=== PATIENT | male | born 1955 | race Caucasian/White ===

== ENCOUNTER 2017-08-12 18:50 | Inpatient (IN) | payer OTHER, SELFPAY ==
[~2017-08-12] VITALS: Ht 167.6 cm; Wt 48.2 kg
[~2017-08-12 18:50] MED LIST: ACET325 PO; AMIT10 PO; FLUSAL2505 INH; FLUT1DIS8 INH; GUAI600T33 PO; LEVO750 PO; LEVOFLOXACIN750 MG PO; METO25ER PO; PRED10 PO; Prednisone20 MG PO; TIOT18 IH; Ventolin5 MG/1 ML NEB
[2017-08-12] MEDS ORDERED: Cheratussin AC118 ML PO (19:41)
[2017-08-12 19:42] LABS: Influenza A Negative (NEGATIVE); Influenza B Negative (NEGATIVE)
[2017-08-12 19:55] LABS: BASOPHILS ABSOLUTE AUTO 0.02 K/mm3 (0.00-0.23); BASOPHILS PERCENT AUTO 0 % (0-2); EOSINOPHILS PERCENT AUTO 0 % (0-6); Hematocrit 45.8 % (37.0-53.0); IMMATURE GRAN ABSOLUTE AUTO 0.03 K/mm3 (0.00-0.10); IMMATURE GRAN PERCENT AUTO 0 % (0-1); LYMPHOCYTES ABSOLUTE AUTO 0.85 K/mm3 (0.84-5.20); LYMPHOCYTES PERCENT AUTO 8 % (21-46); MONOCYTES ABSOLUTE AUTO 0.56 K/mm3 (0.16-1.47); MONOCYTES PERCENT AUTO 5 % (4-13); Mean Corpuscular HGB Conc 32.8 g/dL (31.5-36.5); Mean Corpuscular Volume 92 fL (80-100); Mean Platelet Volume 9.1 fL (9.1-12.4); NEUTROPHILS PERCENT AUTO 87 % (41-73); Platelet Count 298 K/mm3 (150-400); RDW Coefficient Variation 12.9 % (11.7-14.2); RDW Standard Deviation 43.4 fL (35.1-46.3); White Blood Cell Count 11.36 K/mm3 (4.00-11.30)
[2017-08-12 20:13] LABS: Alanine Aminotransfer (ALT/SGP 19 U/L (12-78); Albumin, Blood 3.5 g/dL (3.4-5.0); Albumin/Globulin Ratio 0.9 (0.8-1.8); Alk Phos 103 U/L (50-136); Anion Gap 9 mmol/L (6-16); Aspartate Aminotrans (AST/SGOT 23 U/L (12-37); Bilirubin, Total 0.4 mg/dL (0.1-1.0); Blood Urea Nitrogen 14 mg/dL (8-24); Bun/Creatinine Ratio 25.2 (12.0-20.0); CO2, Blood 27 mmol/L (21-32); Chloride, Blood 103 mmol/L (98-108); Creatinine, Blood 0.56 mg/dL (0.60-1.20); Globulin, Blood 4.1 g/dL (2.2-4.0); Glomerular Filtration Rate >60 (60-); Glucose, Blood 120 mg/dL (70-99); Potassium, Blood 4.3 mmol/L (3.5-5.5); Sodium, Blood 139 mmol/L (136-145); Total Protein, Blood 7.6 g/dL (6.4-8.2); Troponin I <0.015 ng/mL (0.000-0.040)
[2017-08-12 21:04] LABS: PCO2 Arterial 43.8 mmHg (35-45); PO2 Arterial 60.2 mmHg (80-100)
[2017-08-12 21:05] LABS: Magnesium, Blood 2.6 mg/dL (1.6-2.4)
[2017-08-13 03:58] LABS: BASOPHILS ABSOLUTE AUTO 0.01 K/mm3 (0.00-0.23); BASOPHILS PERCENT AUTO 0 % (0-2); EOSINOPHILS PERCENT AUTO 0 % (0-6); Hematocrit 40.8 % (37.0-53.0); Hemoglobin 13.6 g/dL (13.5-17.5); IMMATURE GRAN ABSOLUTE AUTO 0.04 K/mm3 (0.00-0.10); IMMATURE GRAN PERCENT AUTO 0 % (0-1); LYMPHOCYTES PERCENT AUTO 5 % (21-46); MONOCYTES ABSOLUTE AUTO 0.18 K/mm3 (0.16-1.47); MONOCYTES PERCENT AUTO 2 % (4-13); Mean Corpuscular HGB 30.2 pg (26.0-34.0); Mean Corpuscular HGB Conc 33.3 g/dL (31.5-36.5); Mean Corpuscular Volume 91 fL (80-100); Mean Platelet Volume 9.3 fL (9.1-12.4); NEUTROPHILS PERCENT AUTO 93 % (41-73); Platelet Count 279 K/mm3 (150-400); RDW Coefficient Variation 12.8 % (11.7-14.2); RDW Standard Deviation 42.4 fL (35.1-46.3); White Blood Cell Count 10.83 K/mm3 (4.00-11.30)
[2017-08-13 04:24] LABS: Albumin, Blood 3.2 g/dL (3.4-5.0); Anion Gap 7 mmol/L (6-16); Blood Urea Nitrogen 13 mg/dL (8-24); Bun/Creatinine Ratio 23.9 (12.0-20.0); CO2, Blood 29 mmol/L (21-32); Calcium, Blood 8.6 mg/dL (8.5-10.1); Chloride, Blood 101 mmol/L (98-108); Creatinine, Blood 0.54 mg/dL (0.60-1.20); Glomerular Filtration Rate >60 (60-); Glucose, Blood 162 mg/dL (70-99); Phosphorus, Blood 2.7 mg/dL (2.5-4.9); Sodium, Blood 137 mmol/L (136-145)
[2017-08-13] MEDS ORDERED: ALBU90OI INH (12:37)
[2017-08-17] MEDS ORDERED: AZIT250 (11:25)
[2017-08-17] MEDS ORDERED: Ipratr-Albuterol3 ML INH (11:27)
[2017-08-17] MEDS ORDERED: BUSP10 PO (11:28)
[2017-08-17] MEDS ORDERED: LORA1 PO (11:29)
[2017-08-17] MEDS ORDERED: METO25ER PO (11:30)
[2017-08-17] MEDS ORDERED: PRED10 (11:46)
== END 2017-08-17 14:03 | disposition home health service (06) | DRG 189 ==
LOC: ER 18:50 → MEDS 20:56 → PCU 22:20 → MEDS 08-13 14:05 → ENPENDDIS 08-17 10:57 → MEDS 08-17 14:03
PROVIDERS: Emergency Medicine; Family Medicine
PROC: 5A09357 Assistance with Respiratory Ventilation, Less than 24 Consecutive Hours, Continuous Positive Airway Pressure (ICD-10-PCS; principal; 2017-08-12)
PROC: 3E0234Z Introduction of Serum, Toxoid and Vaccine into Muscle, Percutaneous Approach (ICD-10-PCS; 2017-08-12)
DX: J96.21 Acute and chronic respiratory failure with hypoxia (principal); J44.1 Chronic obstructive pulmonary disease with (acute) exacerbation; R65.10 Systemic inflammatory response syndrome (SIRS) of non-infectious origin without acute organ dysfunction; Z23 Encounter for immunization; F41.9 Anxiety disorder, unspecified
CPT/HCPCS: 36415; 36600; 71045; 80053; 80069; 82803; 83605; 83735; 83880; 84484; 85025; 87040; 87070; 87205; 87804; 93005; 93010; 94640; 94644; 94660; 94667; 94760; 94762; 96365; 96366; 96367; 96368; 96375; 99285; J0456; J1100; J1650; J1940; J1956; J2060; J2930; J3475; J7050

== ENCOUNTER → 2018-11-07 | Outpatient (CLI) | payer OTHER ==
[~2018-11-07] MED LIST changes: +ALBU90OI INH; +AZIT250; +BUSP10 PO; +Cheratussin AC118 ML PO; +Ipratr-Albuterol3 ML INH; +LORA1 PO; +PRED10
[2018-11-07 13:40] LABS: Influenza A Negative (NEGATIVE); Influenza B Negative (NEGATIVE)
== END | disposition home or self-care (01) ==
LOC: LAB SHORT 12:51 → LAB 12:51
DX: R05 Cough (principal)
CPT/HCPCS: 87804

== ENCOUNTER 2020-08-11 10:01 | Emergency (ER) | payer OTHER, SELFPAY ==
[~2020-08-11] VITALS: Ht 167.6 cm; Wt 56.7 kg
[2020-08-11 11:09] LABS: BASOPHILS ABSOLUTE AUTO 0.03 K/mm3 (0.00-0.23); BASOPHILS PERCENT AUTO 0 % (0-2); EOSINOPHILS ABSOLUTE AUTO 0.25 K/mm3 (0.00-0.68); EOSINOPHILS PERCENT AUTO 3 % (0-6); Hematocrit 42.9 % (37.0-53.0); Hemoglobin 13.4 g/dL (13.5-17.5); IMMATURE GRAN ABSOLUTE AUTO 0.05 K/mm3 (0.00-0.10); IMMATURE GRAN PERCENT AUTO 1 % (0-1); LYMPHOCYTES ABSOLUTE AUTO 0.83 K/mm3 (0.84-5.20); LYMPHOCYTES PERCENT AUTO 9 % (21-46); MONOCYTES ABSOLUTE AUTO 0.79 K/mm3 (0.16-1.47); MONOCYTES PERCENT AUTO 8 % (4-13); Mean Corpuscular HGB 29.7 pg (26.0-34.0); Mean Corpuscular HGB Conc 31.2 g/dL (31.5-36.5); Mean Corpuscular Volume 95 fL (80-100); Mean Platelet Volume 9.3 fL (9.1-12.4); NEUTROPHILS ABSOLUTE AUTO 7.46 K/mm3 (1.96-9.15); NEUTROPHILS PERCENT AUTO 79 % (41-73); Platelet Count 230 K/mm3 (150-400); RDW Coefficient Variation 13.5 % (11.7-14.2); RDW Standard Deviation 48.1 fL (35.1-46.3); Red Blood Cell Count 4.51 M/mm3 (4.30-5.90); White Blood Cell Count 9.41 K/mm3 (4.00-11.30)
[2020-08-11 11:34] LABS: Alanine Aminotransfer (ALT/SGP 27 U/L (12-78); Albumin, Blood 3.7 g/dL (3.4-5.0); Albumin/Globulin Ratio 1.1 (0.8-1.8); Alk Phos 80 U/L (50-136); Anion Gap 2 mmol/L (6-16); Aspartate Aminotrans (AST/SGOT 24 U/L (12-37); Bilirubin, Total 0.7 mg/dL (0.1-1.0); Blood Urea Nitrogen 8 mg/dL (8-24); Bun/Creatinine Ratio 9.6 (12.0-20.0); CO2, Blood 32 mmol/L (21-32); Calcium, Blood 8.9 mg/dL (8.5-10.1); Chloride, Blood 107 mmol/L (98-108); Creatinine, Blood 0.83 mg/dL (0.60-1.20); Globulin, Blood 3.4 g/dL (2.2-4.0); Glomerular Filtration Rate >60 (60-); Glucose, Blood 92 mg/dL (70-99); Sodium, Blood 141 mmol/L (136-145); Total Protein, Blood 7.1 g/dL (6.4-8.2); Troponin I <0.015 ng/mL (0.000-0.040)
[2020-08-11] MEDS ORDERED: Prednisone20 MG PO (12:10)
== END 2020-08-11 12:28 | disposition home or self-care (01) ==
LOC: ER 10:01
PROVIDERS: Emergency Medicine
DX: J44.1 Chronic obstructive pulmonary disease with (acute) exacerbation (principal); I10 Essential (primary) hypertension; Z91.09 Other allergy status, other than to drugs and biological substances; Z79.52 Long term (current) use of systemic steroids; Z87.891 Personal history of nicotine dependence; Z79.899 Other long term (current) drug therapy
CPT/HCPCS: 71045; 80053; 83880; 84484; 85025; 93005; 93010; 94640; 99285-25; J7512

== ENCOUNTER 2022-04-22 05:58 | Inpatient (IN) | payer OTHER ==
[~2022-04-22] VITALS: Ht 165.1 cm; Wt 56.8 kg
[2022-04-22 06:22] LABS: Base Excess Venous 2.9 mmol/L; Bicarbonate Venous 27.1 mmol/L (24.0-30.0); PCO2 Venous 36.8 mmHg (38-42); pH Blood Venous 7.47 (7.34-7.37)
[2022-04-22 06:23] LABS: BASOPHILS ABSOLUTE AUTO 0.04 K/mm3 (0.00-0.23); BASOPHILS PERCENT AUTO 0 % (0-2); EOSINOPHILS ABSOLUTE AUTO 0.17 K/mm3 (0.00-0.68); EOSINOPHILS PERCENT AUTO 1 % (0-6); Hematocrit 41.4 % (37.0-53.0); Hemoglobin 13.4 g/dL (13.5-17.5); IMMATURE GRAN ABSOLUTE AUTO 0.04 K/mm3 (0.00-0.10); IMMATURE GRAN PERCENT AUTO 0 % (0-1); LYMPHOCYTES ABSOLUTE AUTO 1.88 K/mm3 (0.84-5.20); LYMPHOCYTES PERCENT AUTO 16 % (21-46); MONOCYTES ABSOLUTE AUTO 1.27 K/mm3 (0.16-1.47); MONOCYTES PERCENT AUTO 11 % (4-13); Mean Corpuscular HGB 29.6 pg (26.0-34.0); Mean Corpuscular HGB Conc 32.4 g/dL (31.5-36.5); Mean Corpuscular Volume 92 fL (80-100); Mean Platelet Volume 9.3 fL (9.1-12.4); NEUTROPHILS ABSOLUTE AUTO 8.66 K/mm3 (1.96-9.15); NEUTROPHILS PERCENT AUTO 72 % (41-73); Platelet Count 316 K/mm3 (150-400); RDW Coefficient Variation 13.3 % (11.7-14.2); RDW Standard Deviation 45.1 fL (35.1-46.3); Red Blood Cell Count 4.52 M/mm3 (4.30-5.90); White Blood Cell Count 12.06 K/mm3 (4.00-11.30)
[2022-04-22 06:45] LABS: Albumin, Blood 3.1 g/dL (3.4-5.0); Albumin/Globulin Ratio 0.7 (0.8-1.8); Bilirubin, Total 0.7 mg/dL (0.1-1.0); Bun/Creatinine Ratio 13.2 (12.0-20.0); Calcium, Blood 8.6 mg/dL (8.5-10.1); Creatinine, Blood 0.68 mg/dL (0.60-1.20); Globulin, Blood 4.3 g/dL (2.2-4.0); Magnesium, Blood 2.1 mg/dL (1.6-2.4); Potassium, Blood 3.9 mmol/L (3.5-5.5); Total Protein, Blood 7.4 g/dL (6.4-8.2)
[2022-04-22 07:21] LABS: Influenza A, PCR NEGATIVE (NEGATIVE); Influenza B, PCR NEGATIVE (NEGATIVE); Resp Syncytial Virus, PCR NEGATIVE (NEGATIVE); SARS-Cov-2 (COVID-19) PCR, MMC NEGATIVE (NEGATIVE)
[2022-04-22 09:34] LABS: Source, Urine Clean Catch
[2022-04-22 10:05] LABS: Appearance, Urine Clear (Clear); Bilirubin, Urine Neg (Neg); Blood, Urine 1+ (Neg); Color, Urine Yellow (P-Yellow); Glucose Qualitative, Urine Neg (Neg); Ketones, Urine 3+ (Neg); Leukocyte Esterase, Urine Neg (Neg); Nitrite, Urine Neg (Neg); Protein, Urine Neg (Neg); Urobilinogen, Urine NORM (Normal)
[2022-04-22 10:33] LABS: Mucus Mod (0-Heavy); Red Blood Cells, Urine 0-2 /hpf (0-2); Squamous Epithelial Cells Rare /hpf (Few)
[2022-04-22 10:34] LABS: Bacteria Few /hpf
[2022-04-22] MEDS ORDERED: TRELEGY ELLIPT1 EAC1 INH (11:54)
[2022-04-22] MEDS ORDERED: METO50ER PO (11:55)
--- NOTE | 2022-04-22 12:00 | NUR ---
TRANSFER NOTE PATIENT TO PCU 1 FROM ED AROUND 1120. REPORT TAKEN FROM SUSAN THEODORE IN ED PRIOR TO ARRIVAL VIA PHONE. PATIENT WAS ABLE TO AMBULATE FROM GURNEY TO BED WITHOUT DIFFICULTY. USED URINAL WHILE STANDING INDEPENDENTLY AFTER ARRIVAL. PATIENT DENIED PAIN. ON 3L OF O2 WITH O2 SATS >94%; BASELINE AT HOME IS 2L. PATIENT A&OX4, GOOD HISTORIAN FOR MEDICAL HISTORY AND KNOWLEDGABLE ABOUT HOME MEDICATIONS. ON CONTINUOUS TELEMETRY; SINUS TACH WITH OCCASIONAL PVC'S NOTED; HR 100-120S. PATIENT DENIES CHEST PAIN. BP STABLE. STRONG PULSES THROUGHOUT. NS INFUSION AT 150MLS/HR. OCCASIONAL UNPRODUCTIVE COUGHING NOTED. BED IN LOWEST POSITION AND CALL LIGHT WITHIN REACH.
--- NOTE | 2022-04-22 17:57 | NUR ---
SHIFT SUMMARY PATIENT CONTINUES TO BE A&O X4. DENIES PAIN. ST ON THE MONITOR WITH HR 100-110S. ON 2L OF O2 VIA NC, WHICH IS BASELINE AT HOME, WITH O2 SATS >94%. PATIENT TACHYPNEIC WITH RR 20-24; NO OTHER SIGNS OF RESPIRATORY DISTRESS. PATIENT IS CALM AND COOPERATIVE WITH CARE AND CALLS APPROPRIATELY FOR STAFF ASSISTANCE. CONTINENT AND INDEPENDENT FOR ADLS. AT BEDSIDE. NS AT 150MLS/HR. BP STABLE. AFERBILE. BED IN LOWEST POSITION AND CALL LIGHT WITHIN REACH.
[2022-04-23 04:07] LABS: BASOPHILS ABSOLUTE AUTO 0.02 K/mm3 (0.00-0.23); BASOPHILS PERCENT AUTO 0 % (0-2); EOSINOPHILS PERCENT AUTO 0 % (0-6); Hematocrit 33.2 % (37.0-53.0); Hemoglobin 10.7 g/dL (13.5-17.5); IMMATURE GRAN ABSOLUTE AUTO 0.05 K/mm3 (0.00-0.10); IMMATURE GRAN PERCENT AUTO 1 % (0-1); LYMPHOCYTES ABSOLUTE AUTO 0.62 K/mm3 (0.84-5.20); LYMPHOCYTES PERCENT AUTO 7 % (21-46); MONOCYTES ABSOLUTE AUTO 0.41 K/mm3 (0.16-1.47); MONOCYTES PERCENT AUTO 5 % (4-13); Mean Corpuscular HGB 30.2 pg (26.0-34.0); Mean Corpuscular HGB Conc 32.2 g/dL (31.5-36.5); Mean Corpuscular Volume 94 fL (80-100); Mean Platelet Volume 9.2 fL (9.1-12.4); NEUTROPHILS ABSOLUTE AUTO 7.38 K/mm3 (1.96-9.15); NEUTROPHILS PERCENT AUTO 87 % (41-73); Platelet Count 232 K/mm3 (150-400); RDW Coefficient Variation 13.5 % (11.7-14.2); RDW Standard Deviation 47.2 fL (35.1-46.3); Red Blood Cell Count 3.54 M/mm3 (4.30-5.90); White Blood Cell Count 8.48 K/mm3 (4.00-11.30)
--- NOTE | 2022-04-23 05:58 | NUR ---
NOC SHIFT SUMMARY PT SLEPT WELL OVERNIGHT. COMPLAINTS OF PAIN AT BEGINNING OF SHIFT RESOLVED BY AVAILABLE PRNS. SEE EMAR FOR DETAILS. ST ON TELEMETRY, VSS PER PT TREND. ORIENTED X4 AND SPOUSE IN ROOM AT BEGINNING OF SHIFT. ON 3L NC. UPDATED ON PLAN OF CARE. WILL PASS ON TO DAY RN.
--- NOTE | 2022-04-23 17:49 | NUR ---
NO ACUTE EVENTS T/O SHIFT. PT HR NOTED TO GO UP INTO THE 130s WHEN UP USING THE RESTROOM, BUT RETURNED TO LOW 100s ONCE BACK TO BED. VSS, SEE DOCUMENTED ASSESSMENT. PT MEDICATED PER EMAR FOR DISCOMFORTS. PT USES CALL LIGHT FOR NEEDS, CALL LIGHT IN REACH, WILL CONTINUE TO MONITOR AND GIVE REPORT TO NOC SHIFT RN.
--- NOTE | 2022-04-24 06:13 | NUR ---
NOC SHIFT SUMMARY PT ORIENTED X4, HR IN 160S SUDDENLY WITH TACHYPNEA AND ACCESSORY MUSCLE USE @0400 THIS AM. MD NOTIFIED, RT TO BEDSIDE. RT PLACED ON BIPAP, IV METOPROLOL GIVEN. BNP AND D DIMER ORDERED. IVF STOPPED. IMPROVEMENT IN HR POST METOPROLOL, PT STILL TACHYPNEIC BUT REPORTS INCREASE IN BREATHING. NOTIFIED DR. LARSON THIS AM OF RESULTS OF AM LABS. CT CHEST ORDERED PER MD. WILL PASS ON TO DAY RN
[2022-04-24 06:17] LABS: Hematocrit 37.1 % (37.0-53.0); Hemoglobin 11.7 g/dL (13.5-17.5); Mean Corpuscular HGB Conc 31.5 g/dL (31.5-36.5); Mean Corpuscular Volume 95 fL (80-100); Mean Platelet Volume 9.8 fL (9.1-12.4); Platelet Count 378 K/mm3 (150-400); RDW Standard Deviation 49.1 fL (35.1-46.3); White Blood Cell Count 15.42 K/mm3 (4.00-11.30)
[2022-04-24 06:28] LABS: Bun/Creatinine Ratio 20.4 (12.0-20.0); Calcium, Blood 8.2 mg/dL (8.5-10.1); Creatinine, Blood 0.54 mg/dL (0.60-1.20); Potassium, Blood 4.4 mmol/L (3.5-5.5)
--- NOTE | 2022-04-24 08:45 | NUR ---
ASSUMED CARE OF PT AT 0700 THIS AM. PT SOB AND TACHYCARDIC EARLY THIS AM PER REPORT FROM NOC SHIFT RN. AWAITING CTA TO R/O PE. ON ASSESSMENT, PT APPEARS TO HAVE 1+ GENERALIZED EDEMA AND PT REPORTS FEELING "LIKE MY JOINTS ARE TIGHT." FINE CRACKLES NOTED TO BILAT LUNG BASES. DR GIBSON NOTIFIED OF FINDINGS, ORDER FOR IV LASIX REVEIVED.
--- NOTE | 2022-04-24 17:29 | NUR ---
PT WITH GOOD URINE OUTPUT AFTER ADMINISTRATION OF LASIX THIS AM. PT REPORTS HIS BREATHING FEELS MUCH BETTER. PT HAS NOT NEEDED THE BIPAP AND HE IS BACK ON HIS BASELINE 02 NEEDS OF 2L. CTA NEGATIVE FOR PE. ECHO DONE TODAY, RESULTS NOT AVAILABLE AT THIS TIME. NO FURTHER ACUTE EVENTS THIS SHIFT. CALL LIGHT IN REACH, WILL CONTINUE TO MONITOR AND GIVE REPORT TO NOC SHIFT RN.
[2022-04-25 03:57] LABS: BASOPHILS ABSOLUTE AUTO 0.01 K/mm3 (0.00-0.23); BASOPHILS PERCENT AUTO 0 % (0-2); EOSINOPHILS PERCENT AUTO 0 % (0-6); Hematocrit 33.2 % (37.0-53.0); Hemoglobin 10.7 g/dL (13.5-17.5); IMMATURE GRAN ABSOLUTE AUTO 0.13 K/mm3 (0.00-0.10); IMMATURE GRAN PERCENT AUTO 1 % (0-1); LYMPHOCYTES ABSOLUTE AUTO 0.64 K/mm3 (0.84-5.20); LYMPHOCYTES PERCENT AUTO 7 % (21-46); MONOCYTES ABSOLUTE AUTO 0.47 K/mm3 (0.16-1.47); MONOCYTES PERCENT AUTO 5 % (4-13); Mean Corpuscular HGB Conc 32.2 g/dL (31.5-36.5); Mean Corpuscular Volume 93 fL (80-100); Mean Platelet Volume 9.5 fL (9.1-12.4); NEUTROPHILS ABSOLUTE AUTO 8.13 K/mm3 (1.96-9.15); NEUTROPHILS PERCENT AUTO 87 % (41-73); Platelet Count 311 K/mm3 (150-400); RDW Coefficient Variation 13.4 % (11.7-14.2); RDW Standard Deviation 46.4 fL (35.1-46.3); Red Blood Cell Count 3.57 M/mm3 (4.30-5.90); White Blood Cell Count 9.38 K/mm3 (4.00-11.30)
--- NOTE | 2022-04-25 17:27 | NUR ---
NO ACUTE EVENTS T/O SHIFT. PT HAS NOT NEEDED TO USE THE BIPAP TODAY, REMAINS ON BASELINE 2L O2 VIA NC. STARTED ON SCHEDULED LASIX PO FOR NEW DX DCHF, DR FINK DISCUSSED WITH PT TODAY. NO OVERAL CHANGE IN PT CONDITION TODAY. CALL LIGHT IN REACH, WILL CONTINUE TO MONITOR AND GIVE REPORT TO NOC SHIFT RN.
[2022-04-26 04:54] LABS: Bun/Creatinine Ratio 31.8 (12.0-20.0); Calcium, Blood 8.1 mg/dL (8.5-10.1); Creatinine, Blood 0.57 mg/dL (0.60-1.20); Potassium, Blood 3.8 mmol/L (3.5-5.5)
--- NOTE | 2022-04-26 05:39 | NUR ---
SHIFT SUMMARY PATIENT IS ALERT AND ORIENTED X4. 02 SATS 98% ON 2L VIA NC, LS COARSE, SMALL AMOUNT OF THICK SPUTUM. HR SR 70s, BP STABLE, DENIES CP/PRESSURE. USES URINAL. REPOSITIONS SELF IN BED. NO ACUTE CHANGES. CALL LIGHT IN REACH.
[2022-04-26] MEDS ORDERED: FURO20 PO (11:42)
[2022-04-26] MEDS ORDERED: IPRAT-ALBUT 0.5-3 ML INH (11:44)
[2022-04-26] MEDS ORDERED: Prednisone20 MG PO (11:45)
[2022-04-26] MEDS ORDERED: OMEP20ER PO (11:47)
[2022-04-26] MEDS ORDERED: LEVO750 PO (11:47)
[2022-04-26] MEDS ORDERED: POTA10T PO (11:53)
--- NOTE | 2022-04-26 13:31 | NUR ---
DISHCARGE SUMMARY PT IS A/Ox4 AND FOLLWS DIRECTIONS GIVEN BY STAFF. PT RETURNED TO HIS BASELINE OF 2L VIA NC WITH NO SOB OR DYSPNEA NOTED. PT AND SPOUSE UNDERSTOOD ALL DISHCARGE TEACHING WITH ALL QUESTIONS ANSWERED BY THIS RN. VSS AND NADN UPON DC
== END 2022-04-26 13:01 | disposition home or self-care (01) | DRG 871 ==
LOC: ER 05:58 → PCU 10:09 → ER 11:20 → PCU 11:41
PROVIDERS: Internal Medicine; Nurse Practitioner Acute Care; Student in an Organized Health Care Education/Training Program; ADMIT Internal Medicine
DX: A41.9 Sepsis, unspecified organism (principal); I50.31 Acute diastolic (congestive) heart failure; J18.9 Pneumonia, unspecified organism; J96.21 Acute and chronic respiratory failure with hypoxia; J44.0 Chronic obstructive pulmonary disease with (acute) lower respiratory infection; J44.1 Chronic obstructive pulmonary disease with (acute) exacerbation; I11.0 Hypertensive heart disease with heart failure; F41.9 Anxiety disorder, unspecified; R00.0 Tachycardia, unspecified; I27.20 Pulmonary hypertension, unspecified; Z88.8 Allergy status to other drugs, medicaments and biological substances; Z91.048 Other nonmedicinal substance allergy status; Z79.899 Other long term (current) drug therapy; Z87.891 Personal history of nicotine dependence
CPT/HCPCS: 0241U; 36415; 71045; 71260; 80048; 80053; 81001; 82803; 83605; 83735; 83880; 84145; 84484; 85025; 85027; 85379; 87040; 93005; 93010; 93306; 94640; 94644; 94660; 94664; 94760; 94762; 96365; 96367; 96375; 99285-25; A9270; J0456; J0696; J1650; J1885; J1940; J2060; J2930; J7030; J7050; J7512; Q0177; Q9967

== ENCOUNTER 2022-07-09 08:48 | Inpatient (IN) | payer OTHER ==
[~2022-07-09] VITALS: Ht 167.6 cm; Wt 54.4 kg
[~2022-07-09 08:48] MED LIST changes: +FURO20 PO; +IPRAT-ALBUT 0.5-3 ML INH; +METO50ER PO; +OMEP20ER PO; +POTA10T PO; +TRELEGY ELLIPT1 EAC1 INH
[2022-07-09 09:09] LABS: Base Excess Venous -0.2 mmol/L; Bicarbonate Venous 22.3 mmol/L (24.0-30.0); PCO2 Venous 63.9 mmHg (38-42); pH Blood Venous 7.24 (7.34-7.37)
[2022-07-09 09:20] LABS: BASOPHILS ABSOLUTE AUTO 0.04 K/mm3 (0.00-0.23); BASOPHILS PERCENT AUTO 0 % (0-2); EOSINOPHILS PERCENT AUTO 0 % (0-6); Hematocrit 42.9 % (37.0-53.0); Hemoglobin 13.4 g/dL (13.5-17.5); IMMATURE GRAN ABSOLUTE AUTO 0.11 K/mm3 (0.00-0.10); IMMATURE GRAN PERCENT AUTO 1 % (0-1); LYMPHOCYTES ABSOLUTE AUTO 2.69 K/mm3 (0.84-5.20); LYMPHOCYTES PERCENT AUTO 14 % (21-46); MONOCYTES ABSOLUTE AUTO 1.44 K/mm3 (0.16-1.47); MONOCYTES PERCENT AUTO 8 % (4-13); Mean Corpuscular HGB 29.4 pg (26.0-34.0); Mean Corpuscular HGB Conc 31.2 g/dL (31.5-36.5); Mean Corpuscular Volume 94 fL (80-100); Mean Platelet Volume 9.5 fL (9.1-12.4); NEUTROPHILS ABSOLUTE AUTO 14.84 K/mm3 (1.96-9.15); NEUTROPHILS PERCENT AUTO 78 % (41-73); Platelet Count 276 K/mm3 (150-400); RDW Coefficient Variation 14.5 % (11.7-14.2); RDW Standard Deviation 51.1 fL (35.1-46.3); Red Blood Cell Count 4.56 M/mm3 (4.30-5.90); White Blood Cell Count 19.12 K/mm3 (4.00-11.30)
[2022-07-09 09:27] LABS: Albumin, Blood 3.1 g/dL (3.4-5.0); Albumin/Globulin Ratio 0.8 (0.8-1.8); Bilirubin, Total 0.7 mg/dL (0.1-1.0); Bun/Creatinine Ratio 21.8 (12.0-20.0); Calcium, Blood 8.3 mg/dL (8.5-10.1); Creatinine, Blood 0.78 mg/dL (0.60-1.20); Globulin, Blood 4.1 g/dL (2.2-4.0); Potassium, Blood 4.5 mmol/L (3.5-5.5); Total Protein, Blood 7.2 g/dL (6.4-8.2)
[2022-07-09 09:51] LABS: Influenza A, PCR NEGATIVE (NEGATIVE); Influenza B, PCR NEGATIVE (NEGATIVE); Resp Syncytial Virus, PCR NEGATIVE (NEGATIVE); SARS-Cov-2 (COVID-19) PCR, MMC NEGATIVE (NEGATIVE)
[2022-07-09 12:26] LABS: Bicarbonate Venous 24.9 mmol/L (24.0-30.0); PCO2 Venous 47.4 mmHg (38-42); pH Blood Venous 7.36 (7.34-7.37)
--- NOTE | 2022-07-09 19:10 | NUR ---
SHIFT SUMMARY PATIENT NEW ADMIT TO PCU FROM ER FOR COPD EXACERBATION AND RLL PNEUMONIA. PATIENT CAME TO UNIT AT 1330 ON 2L NC SATTING AT 94%. 2L IS HIS BASELINE 24/7. HE IS ALERT AND ORIENTED WITH SPOUSE PRESENT. TACHYPNEA, OTHER VSS. GENERALLY WEAK AND DECONDITIONED. ECHO COMPLETED THIS AFTERNOON. NARES AND SPUTUM CULTURES SENT TO LAB. NEW IV PLACED. TOLERATING CARDIAC DIET AND LIQUIDS. USING URINAL AT BEDSIDE. IV STEROID AND ABX GIVEN.
[2022-07-10 04:30] LABS: BASOPHILS ABSOLUTE AUTO 0.01 K/mm3 (0.00-0.23); BASOPHILS PERCENT AUTO 0 % (0-2); EOSINOPHILS PERCENT AUTO 0 % (0-6); Hematocrit 35.7 % (37.0-53.0); Hemoglobin 11.7 g/dL (13.5-17.5); IMMATURE GRAN ABSOLUTE AUTO 0.04 K/mm3 (0.00-0.10); IMMATURE GRAN PERCENT AUTO 0 % (0-1); LYMPHOCYTES ABSOLUTE AUTO 0.97 K/mm3 (0.84-5.20); LYMPHOCYTES PERCENT AUTO 8 % (21-46); MONOCYTES ABSOLUTE AUTO 0.42 K/mm3 (0.16-1.47); MONOCYTES PERCENT AUTO 3 % (4-13); Mean Corpuscular HGB 29.5 pg (26.0-34.0); Mean Corpuscular HGB Conc 32.8 g/dL (31.5-36.5); Mean Corpuscular Volume 90 fL (80-100); Mean Platelet Volume 9.5 fL (9.1-12.4); NEUTROPHILS ABSOLUTE AUTO 10.81 K/mm3 (1.96-9.15); NEUTROPHILS PERCENT AUTO 88 % (41-73); Platelet Count 210 K/mm3 (150-400); RDW Coefficient Variation 14.2 % (11.7-14.2); RDW Standard Deviation 47.3 fL (35.1-46.3); Red Blood Cell Count 3.97 M/mm3 (4.30-5.90); White Blood Cell Count 12.25 K/mm3 (4.00-11.30)
[2022-07-10 04:55] LABS: Bun/Creatinine Ratio 24.5 (12.0-20.0); Calcium, Blood 8.5 mg/dL (8.5-10.1); Creatinine, Blood 0.61 mg/dL (0.60-1.20); Potassium, Blood 3.5 mmol/L (3.5-5.5)
--- NOTE | 2022-07-10 06:41 | NUR ---
SHIFT SUMMARY PT REMAINS A&O X4, PT IS ON 2L O2 VIA NC, SPO2 >95%, LUNG SOUNDS DIMINISHED W/WHEEZE BILATERAL. TOLERATING PO FLUIDS, VOIDING WNL. PT HAS BEEN TACHYCARDIC & ANXIOUS THROUGH THE NIGHT DUE TO MEDS, HE C/O RL FLANK PAIN, RELIEVED BY TYLENOL, TROPONIN REPORTED OF 314 @ 1920, REPEAT WAS ORDERED BY HOSPITALIST, TRENDING DOWN, PT DENIES CP/PRESSURE, STEAM TABLE ASSOCIATE NOTIFIED OF RESULTS. VACUUM PAN TENDER REPORTED AN EPISODE OF BIGEMINY AFTER PT RECIEVED A BREATHING TX, HE WAS ASYMPTOMATIC, HE HAS BEEN SINUS TACH WITH OCCASIONAL PCV'S. NO OTHER ACUTE CHANGES NOTED, PT IS RESTING QUIETLY AT THIS TIME DRINKING BROTH, CALL LIGHT IN REACH.
--- NOTE | 2022-07-10 08:00 | NUR ---
PT A&OX4. PT REPORTS THROAT DISCOMFORT AND ANXIETY. PT STATES THAT HE HAS NOT SLEPT FOR OVER 48 HOURS. THERE ARE WHITE PATCHES NOTED TO PT MOUTH AND DOWN HIS THROAT. WILL REQUEST NYSTATIN SWISH AND SWALLOW. ECG SHOWS SR. SBP 112-25 MG METOPROLOL GIVEN PER PT REQUEST. NO NOTED EDEMA. LUNGS DIMINISHED AND TIGHT. SATS>90 %ON 2 LITERS NASAL CANULA. SOB WITH EXERTION. OCCASIONAL TO FREQUENT MOIST, NONPRODUCTIVE COUGH. PT DENIES GI DISTRESS. VOIDS VIA URINAL INDEPENDENTLY. PT REPOSITIONS HIMSELF IN BED. CALL LIGHT WITHIN REACH.
--- NOTE | 2022-07-10 11:05 | NUR ---
PT CONTINUES TO COMPLAIN OF ANXIETY AND RESTLESSNESS. MED WITH XANAX 0.5 MG PO X 1-SEE EMAR. VS WDL. LUNGS REMAIN TIGHT AND DIMINISHED, BUT SATS>90% ON 2 LITERS NASAL CANULA. PLAN TO ADMINISTER 1ST DOSE OF NYSTATIN SWISH AND SWALLOW AFTER LUNCH. PT ENECOURAGED TO CHANGE POSITIONS EVERY 1-2 HOURS. PT VERBALIZES BOTH UNDERSTANDING AND COOPERATION. CALL LIGHT WITHIN REACH.
--- NOTE | 2022-07-10 14:00 | NUR ---
PT APPEARS TO BE SLEEPING. CALL LIGHT IN REACH.
--- NOTE | 2022-07-10 16:00 | NUR ---
PT SLEPT FOR A COUPLE OF HOURS THIS AFTERNOON. HE AWAKENS TO VOICE AND DENIES COMPLAINTS. VSS. LUNGS REMAIN TIGHT AND DIMINISHED THROUGH OUT. SATS>90% ON 2 LITERS NASAL CANULA. PT REPOSITIONING HIMSELF IN BED. CALL LIGHT IN REACH.
--- NOTE | 2022-07-11 00:28 | NUR ---
WHEN HANGING MIDNIGHT DOSE OF CEFEPIME FOUND A DIFFERENT PATIENTS ZOSYN HANGING EMPTY ON SECONDARY LINE. NOTIFIED.
[2022-07-11 04:09] LABS: BASOPHILS ABSOLUTE AUTO 0.01 K/mm3 (0.00-0.23); BASOPHILS PERCENT AUTO 0 % (0-2); EOSINOPHILS PERCENT AUTO 0 % (0-6); Hemoglobin 11.3 g/dL (13.5-17.5); IMMATURE GRAN ABSOLUTE AUTO 0.06 K/mm3 (0.00-0.10); IMMATURE GRAN PERCENT AUTO 1 % (0-1); LYMPHOCYTES ABSOLUTE AUTO 0.66 K/mm3 (0.84-5.20); LYMPHOCYTES PERCENT AUTO 6 % (21-46); MONOCYTES ABSOLUTE AUTO 0.41 K/mm3 (0.16-1.47); MONOCYTES PERCENT AUTO 4 % (4-13); Mean Corpuscular HGB 29.7 pg (26.0-34.0); Mean Corpuscular HGB Conc 32.3 g/dL (31.5-36.5); Mean Corpuscular Volume 92 fL (80-100); Mean Platelet Volume 10.2 fL (9.1-12.4); NEUTROPHILS ABSOLUTE AUTO 10.21 K/mm3 (1.96-9.15); NEUTROPHILS PERCENT AUTO 90 % (41-73); Platelet Count 272 K/mm3 (150-400); RDW Standard Deviation 47.8 fL (35.1-46.3); White Blood Cell Count 11.35 K/mm3 (4.00-11.30)
[2022-07-11 04:25] LABS: Albumin, Blood 2.5 g/dL (3.4-5.0); Anion Gap 5 mmol/L (6-16); Blood Urea Nitrogen 20 mg/dL (8-24); Bun/Creatinine Ratio 25.6 (12.0-20.0); CO2, Blood 31 mmol/L (21-32); Calcium, Blood 8.5 mg/dL (8.5-10.1); Chloride, Blood 107 mmol/L (98-108); Creatinine, Blood 0.78 mg/dL (0.60-1.20); Glomerular Filtration Rate 97 (60-); Glucose, Blood 198 mg/dL (70-99); Phosphorus, Blood 2.3 mg/dL (2.5-4.9); Potassium, Blood 3.6 mmol/L (3.5-5.5); Sodium, Blood 143 mmol/L (136-145)
--- NOTE | 2022-07-11 04:53 | NUR ---
END OF SHIFT SUMMARY NEURO: A&OX4. NO C/0 OF NUMBNESS/TINGLING, VISION CHANGES OR HEADACHE. FULL SENSATION IN ALL FOUR EXTREMITIES AND ABLE TO OVERCOME RESISTANCE. RESPIRATORY: 2L NC. TACHYPNEIC. COARSE, TIGHT BREATH SOUNDS APPRECIATED BILATERALLY. INTERMITTENT LOOSE, WET COUGH. CARDIAC: PT DENIES CHEST PAIN. NSR-ST. HR 90s-110s. BP AVERAGING 100s/60s MAP >65. FREQUENT PVCs. MULTIPLE RUNS OF QUADRIGEMINY. GI/: CONTINENT OF BOWEL AND BLADDER. NORMOACTIVE BOWEL SOUNDS, BDOMEN SOFT AND NO C/O OF TENDERNESS. PUT OUT 200 ML OF COLLEEN URINE OVERNIGHT. 0500 BLADDER SCAN SHOWED 135 ML. NO INTAKE OF FLUIDS OVERNIGHT. MUSCULOSKELETAL: GENERALIZED WEAKNESS BUT LIMBS ABLE TO OVERCOME RESISTANCE. PT TURNS INDEPENDENTLY INTEGUMENTARY: DRY AND FRAGILE. DIFFUSE BRUISING TO BUE. COCCYX CLEAR.
--- NOTE | 2022-07-11 08:00 | NUR ---
PT A&OX4. DENIES PAIN. PT STATES THAT HE SLEPT WELL LAST NIGHT. ECG SHOWS ST WITH RATE 110'S WITH FREQUENT PVC'S. PT DENIES CHEST PAIN. LUNGS REMAIN TIGHT AND DIMINISHED. MOIST COUGH OCCASIONALLY PRODUCTIVE OF MODERATE AMOUNT OF THICK, YELLOW SPUTUM. DYSPNEA ON EXERTION. SATS>90% ON 2 LITERS NASAL CANULA. PT DENIES GI DISTRESS. PT VOIDS VIA URINAL. PT ABLE TO REPOSITION HIMSELF IN BED AND COMMUNICATES NEEDS WELL. CALL LIGHT WITHIN REACH.
--- NOTE | 2022-07-11 09:50 | NUR ---
DR. ROBERTSON IN TO SEE PT. FULL UPDATE GIVEN. PT CHANGED TO MED-TELE STATUS.
--- NOTE | 2022-07-11 12:00 | NUR ---
PT HAS RESTING QUIETLY WHEN NOT DISTURBED THIS AM. SATS>90% ON 2 LITERS NASAL CANULA. NO NOTED RESPIRATORY DISTRESS. LUNCH TRAY GIVEN. CALL LIGHT WITHIN REACH.
--- NOTE | 2022-07-11 13:00 | NUR ---
PT STATES THAT HE IS FEELING ANXIOUS AND REQUESTS TO HAVE "THE PILL YOU GAVE ME YESTERDAY. IT WORKED REALLY WELL." PT WAS GIVEN ONE TIME DOSE OF XANAX 0.[address] ROBERTSON CONTACTED PER PT REQUEST. ATARAX 50 MG GIVEN PO. WILL REASSESS IN 30 MINUTES AND IF NOT AFFECTIVE-WILL NOTIFY DR. ROBERTSON.
--- NOTE | 2022-07-11 13:44 | NUR ---
PT STATES THAT THE ATARAX "DIDN'T REALLY HELP." PT REPORTS THAT HE IS STILL ANXIOUS. WILL UPDATE DR. ROBERTSON.
--- NOTE | 2022-07-11 15:15 | NUR ---
PT REPORTS ONGOING ANXIETY AND GENERALIZED PAIN. ALSO. PT REQUESTS MUCINEX TO "LOOSEN" SECRETIONS. HR 90-100'S. SBP 100-110'S. LUNGS REMAIN TIGHT AND DIMINISHED, BUT OVERALL AIR EXCHANGE IMPROVED THIS AFTERNOON. MAINTAINS SATS>90% ON 2 LITERS NASAL CANULA. PT MED WITH TYLENOL PO FOR PAIN, XANAX 0.5 MG PO FOR ANXIETY, AND MUCINEX EXPECTORANT. CALL LIGHT WITHIN REACH AND PT AGREES TO CALL FOR ASSIST PRN.
--- NOTE | 2022-07-11 16:00 | NUR ---
PT APPEARS TO BE SLEEPING. NO ACUTE DISTRESS NOTED.
--- NOTE | 2022-07-11 21:47 | NUR ---
ASSUMPTION OF CARE/ASSESSMENT: ASSUMED CARE OF PT AT 1900. PT IS IN BED ON RA WITH SPO2 90<. PT IS A&O X 4; PT APPEARS SLIGHTLY IRRITATED AND FRUSTRATED WITH BEING IN THE HOSPITAL BUT COMPLIANT WITH CARE AT THIS TIME. PT HAS C/O SOB WITH THIS RN AT BEDSIDE TO ASSESS PT. PT PLACED BACK ON BIPAP MASK AT THIS TIME. PT STATES THAT HE IS MORE COMFORTABLE AND REQUESTS PRN XANAX TO HELP HIM RELAX WITH MASK ON AND GO TO SLEEP. PT LUNG SOUNDS HAVE INSPIRATORY WHEEZE IN ALL LUNG PRABHAKAR; PT TACHYPNEIC WITH RR 22-26. PT SPO2 WITH BIPAP 92<. PT HR IN THE 80'S AND SBP 120-130; PT ON TELE AND NO C/O CHEST PAIN AT THIS TIME. PT HAS HYPERACTIVE BS IN ALL QUADRANTS. PT USING URINAL AT BEDSIDE INDEPENDENTLY. PT DENIES HELP WITH REPOSITIONING; THIS RN PLACED PILLOW UNDER PT'S HEAD. CALL LIGHT IN REACH, BED LOWERED, WILL CONTINUE TO MONITOR.
--- NOTE | 2022-07-11 21:58 | NUR ---
ASSUMPTION OF CARE/ASSESSMENT: ASSUMED CARE OF PT AT 1900. PT IS ASLEEP IN BED WHEN AT BEDSIDE TO ASSESS; PT WAKES EASILY TO VERBAL STIMULI. PT A&O X4 AND PLEASANT; PARTICIPATES IN CONVERSATION APPROPRIATELY. PT CURRENTLY ON NC @ 2LPM WITH SPO2 94<. PT HAS NO C/O SOB OR CHEST PAIN AT THIS TIME. PT HR 100'S, SBP 100'S. PT HAS HYPERACTIVE BS IN ALL QUADRANTS AND USING URINAL AT BEDSIDE INDEPENDENTLY. PT HAS BEEN USING CALL LIGHT APPROPRIATELY AND COOPERATING WITH CARE AT THIS TIME. BED LOWERED, CALL LIGHT IN REACH, WILL CONTINUE TO MONITOR.
[2022-07-12 04:14] LABS: BASOPHILS ABSOLUTE AUTO 0.01 K/mm3 (0.00-0.23); BASOPHILS PERCENT AUTO 0 % (0-2); EOSINOPHILS PERCENT AUTO 0 % (0-6); Hematocrit 34.1 % (37.0-53.0); Hemoglobin 10.9 g/dL (13.5-17.5); IMMATURE GRAN ABSOLUTE AUTO 0.09 K/mm3 (0.00-0.10); IMMATURE GRAN PERCENT AUTO 1 % (0-1); LYMPHOCYTES ABSOLUTE AUTO 0.52 K/mm3 (0.84-5.20); LYMPHOCYTES PERCENT AUTO 5 % (21-46); MONOCYTES ABSOLUTE AUTO 0.35 K/mm3 (0.16-1.47); MONOCYTES PERCENT AUTO 3 % (4-13); Mean Corpuscular HGB 29.4 pg (26.0-34.0); Mean Corpuscular Volume 92 fL (80-100); Mean Platelet Volume 10.2 fL (9.1-12.4); NEUTROPHILS ABSOLUTE AUTO 9.46 K/mm3 (1.96-9.15); NEUTROPHILS PERCENT AUTO 91 % (41-73); Platelet Count 293 K/mm3 (150-400); RDW Coefficient Variation 13.9 % (11.7-14.2); RDW Standard Deviation 47.5 fL (35.1-46.3); Red Blood Cell Count 3.71 M/mm3 (4.30-5.90); White Blood Cell Count 10.43 K/mm3 (4.00-11.30)
[2022-07-12 04:36] LABS: Calcium, Blood 8.4 mg/dL (8.5-10.1); Creatinine, Blood 0.62 mg/dL (0.60-1.20); Magnesium, Blood 2.6 mg/dL (1.6-2.4)
--- NOTE | 2022-07-12 06:32 | NUR ---
SHIFT SUMMARY: NO ACUTE CHANGES THIS SHIFT. VSS THROUGHOUT THE NIGHT. WILL CONTINUE TO MONITOR UNTIL ONCOMING RN ARRIVES.
--- NOTE | 2022-07-12 18:30 | NUR ---
END OF SHIFT SUMMARY PT ALERT/ORIENTED AND PLEASANT. SINUS RHYTHM, BP STABLE. OK TO D/C TELE PER MD. 2L NC (BASELINE AT HOME), 02 SAT 96%. LUNGS COARSE AT TIMES, PRODUCTIVE COUGH CLEARING COARSENESS. REGULAR DIET ORDERED, EATING 75-100% OF ALL MEALS. VOIDS USING URINAL OR IN BATHROOM. BM X1 (SMALL) TODAY PER PT REPORT. ASSISTED WITH AMBULATION TO BATHROOM AND OOB TO CHAIR FOR SEVERAL HOURS THIS AM. PIV TO LEFT FA, FLUSHES WELL, SL. SKIN UNCHANGED. FAMILY AT BEDSIDE TO VISIT THIS AFTERNOON, UPDATED ON POC. PLAN IS TO D/C HOME TOMORROW PER .
--- NOTE | 2022-07-13 06:31 | NUR ---
SHIFT SUMMARY A/OX4, SBA FOR TRANSFERS. DENIES PAIN OR SOB. CURRENTLY ON 2L VIA NC WITH SATS GREATER THAN 92. VSS, NO ACUTE CHANGES AT THIS TIME. BED IN LOWEST POSITION WITH CALL LIGHT IN REACH. WILL CONTINUE TO MONITOR AND REPORT TO ONCOMING RN.
[2022-07-13] MEDS ORDERED: AMOCLA875 PO (10:22)
[2022-07-13] MEDS ORDERED: GUAI600T33 PO (10:22)
[2022-07-13] MEDS ORDERED: VISBIOME 112.51 EACH PO (10:23)
[2022-07-13] MEDS ORDERED: NYSTATIN100000 U10 MT (10:23)
[2022-07-13] MEDS ORDERED: PRED20 PO (10:26)
--- NOTE | 2022-07-13 12:17 | NUR ---
DISCHARGE HOME PT A&O X4. VSS. SPO2 > 92% ON 2L NC WHICH IS PT's REPORTED HOME O2 USE. DISCHARGE INSTRUCTIONS REVIEWED W/ PT & SENT HOME W/ PT. PIV REMOVED. PT TAKEN OUT IN WHEELCHAIR @ APPROX 1200.
== END 2022-07-13 11:49 | disposition home or self-care (01) | DRG 871 ==
LOC: ER 08:48 → PCU 10:08 → ERHOLD 10:08 → PCU 13:35
PROVIDERS: Emergency Medicine; Internal Medicine; Student in an Organized Health Care Education/Training Program; ADMIT Internal Medicine
PROC: 3E03329 Introduction of Other Anti-infective into Peripheral Vein, Percutaneous Approach (ICD-10-PCS; principal; 2022-07-09)
PROC: 5A09357 Assistance with Respiratory Ventilation, Less than 24 Consecutive Hours, Continuous Positive Airway Pressure (ICD-10-PCS; 2022-07-09)
DX: B37.7 Candidal sepsis (principal); I21.A1 Myocardial infarction type 2; J18.9 Pneumonia, unspecified organism; J96.21 Acute and chronic respiratory failure with hypoxia; J96.22 Acute and chronic respiratory failure with hypercapnia; J44.0 Chronic obstructive pulmonary disease with (acute) lower respiratory infection; J44.1 Chronic obstructive pulmonary disease with (acute) exacerbation; I10 Essential (primary) hypertension; F41.9 Anxiety disorder, unspecified; Z99.81 Dependence on supplemental oxygen; Z88.8 Allergy status to other drugs, medicaments and biological substances; Z79.899 Other long term (current) drug therapy; Z79.51 Long term (current) use of inhaled steroids; Z79.52 Long term (current) use of systemic steroids; Z79.01 Long term (current) use of anticoagulants; Z79.2 Long term (current) use of antibiotics; Z87.891 Personal history of nicotine dependence; Z86.79 Personal history of other diseases of the circulatory system; Z20.822 Contact with and (suspected) exposure to COVID-19
CPT/HCPCS: 0241U; 36415; 71045; 80048; 80053; 80069; 82803; 83605; 83735; 83880; 84145; 84484; 85025; 87040; 87070; 87081; 87205; 93005; 93010; 93308; 93321; 94640; 94660; 94664; 94760; 94762; 96374; 96375; 99285-25; A9270; J0456; J0692; J1650; J2930; J7030; J7050; J7512

== ENCOUNTER 2022-08-06 10:01 | Emergency (ER) | payer OTHER ==
[~2022-08-06] VITALS: Ht 167.6 cm; Wt 51.3 kg
[~2022-08-06 10:01] MED LIST changes: +AMOCLA875 PO; +NYSTATIN100000 U10 MT; +PRED20 PO; +VISBIOME 112.51 EACH PO
[2022-08-06 10:38] LABS: BASOPHILS ABSOLUTE AUTO 0.02 K/mm3 (0.00-0.23); BASOPHILS PERCENT AUTO 0 % (0-2); EOSINOPHILS PERCENT AUTO 3 % (0-6); Hematocrit 38.9 % (37.0-53.0); Hemoglobin 12.3 g/dL (13.5-17.5); IMMATURE GRAN ABSOLUTE AUTO 0.03 K/mm3 (0.00-0.10); IMMATURE GRAN PERCENT AUTO 1 % (0-1); LYMPHOCYTES ABSOLUTE AUTO 0.88 K/mm3 (0.84-5.20); LYMPHOCYTES PERCENT AUTO 15 % (21-46); MONOCYTES ABSOLUTE AUTO 0.82 K/mm3 (0.16-1.47); MONOCYTES PERCENT AUTO 14 % (4-13); Mean Corpuscular HGB 29.7 pg (26.0-34.0); Mean Corpuscular HGB Conc 31.6 g/dL (31.5-36.5); Mean Corpuscular Volume 94 fL (80-100); Mean Platelet Volume 9.5 fL (9.1-12.4); NEUTROPHILS ABSOLUTE AUTO 4.11 K/mm3 (1.96-9.15); NEUTROPHILS PERCENT AUTO 68 % (41-73); Platelet Count 223 K/mm3 (150-400); RDW Coefficient Variation 14.4 % (11.7-14.2); RDW Standard Deviation 49.6 fL (35.1-46.3); Red Blood Cell Count 4.14 M/mm3 (4.30-5.90); White Blood Cell Count 6.06 K/mm3 (4.00-11.30)
[2022-08-06 11:39] LABS: Albumin, Blood 3.1 g/dL (3.4-5.0); Albumin/Globulin Ratio 0.8 (0.8-1.8); Bilirubin, Total 0.4 mg/dL (0.1-1.0); Bun/Creatinine Ratio 12.9 (12.0-20.0); Creatinine, Blood 0.7 mg/dL (0.60-1.20); Globulin, Blood 3.9 g/dL (2.2-4.0)
[2022-08-06 11:55] LABS: Influenza A, PCR NEGATIVE (NEGATIVE); Influenza B, PCR NEGATIVE (NEGATIVE); Resp Syncytial Virus, PCR NEGATIVE (NEGATIVE); SARS-Cov-2 (COVID-19) PCR, MMC NEGATIVE (NEGATIVE)
[2022-08-06] MEDS ORDERED: AZIT250 PO (14:22)
[2022-08-06] MEDS ORDERED: AMOCLA875 PO (14:22)
== END 2022-08-06 14:37 | disposition home or self-care (01) ==
LOC: ER 10:01
PROVIDERS: Emergency Medicine; Student in an Organized Health Care Education/Training Program
DX: J18.9 Pneumonia, unspecified organism (principal); I11.0 Hypertensive heart disease with heart failure; I50.9 Heart failure, unspecified; J44.9 Chronic obstructive pulmonary disease, unspecified; Z88.8 Allergy status to other drugs, medicaments and biological substances; Z79.899 Other long term (current) drug therapy; Z20.822 Contact with and (suspected) exposure to COVID-19
CPT/HCPCS: 0241U; 36415; 71046; 71260; 80053; 83880; 84484; 85025; 85379; 93005; 93010; A9270; Q9967

== ENCOUNTER 2023-05-15 14:04 | Emergency (ER) | payer OTHER ==
[~2023-05-15] VITALS: Ht 167.6 cm; Wt 49.9 kg
[~2023-05-15 14:04] MED LIST changes: +AZIT250 PO
[2023-05-15 14:35] LABS: BASOPHILS ABSOLUTE AUTO 0.03 K/mm3 (0.00-0.23); BASOPHILS PERCENT AUTO 1 % (0-2); EOSINOPHILS ABSOLUTE AUTO 0.23 K/mm3 (0.00-0.68); EOSINOPHILS PERCENT AUTO 4 % (0-6); Hematocrit 40.4 % (37.0-53.0); Hemoglobin 12.9 g/dL (13.5-17.5); IMMATURE GRAN ABSOLUTE AUTO 0.04 K/mm3 (0.00-0.10); IMMATURE GRAN PERCENT AUTO 1 % (0-1); LYMPHOCYTES ABSOLUTE AUTO 1.41 K/mm3 (0.84-5.20); LYMPHOCYTES PERCENT AUTO 23 % (21-46); MONOCYTES ABSOLUTE AUTO 0.97 K/mm3 (0.16-1.47); MONOCYTES PERCENT AUTO 16 % (4-13); Mean Corpuscular HGB 29.3 pg (26.0-34.0); Mean Corpuscular HGB Conc 31.9 g/dL (31.5-36.5); Mean Corpuscular Volume 92 fL (80-100); Mean Platelet Volume 9.2 fL (9.1-12.4); NEUTROPHILS ABSOLUTE AUTO 3.35 K/mm3 (1.96-9.15); NEUTROPHILS PERCENT AUTO 56 % (41-73); Platelet Count 300 K/mm3 (150-400); RDW Coefficient Variation 13.8 % (11.7-14.2); White Blood Cell Count 6.03 K/mm3 (4.00-11.30)
[2023-05-15 14:54] LABS: Albumin, Blood 3.2 g/dL (3.4-5.0); Albumin/Globulin Ratio 0.8 (0.8-1.8); Bilirubin, Total 0.2 mg/dL (0.1-1.0); Bun/Creatinine Ratio 14.9 (12.0-20.0); Calcium, Blood 9.2 mg/dL (8.5-10.1); Creatinine, Blood 0.67 mg/dL (0.60-1.20); Globulin, Blood 4.2 g/dL (2.2-4.0); Potassium, Blood 3.8 mmol/L (3.5-5.5); Total Protein, Blood 7.4 g/dL (6.4-8.2)
[2023-05-15 15:33] LABS: Influenza A, PCR NEGATIVE (NEGATIVE); Influenza B, PCR NEGATIVE (NEGATIVE); Resp Syncytial Virus, PCR NEGATIVE (NEGATIVE); SARS-Cov-2 (COVID-19) PCR, MMC NEGATIVE (NEGATIVE)
[2023-05-15] MEDS ORDERED: Prednisone20 MG PO (15:54)
[2023-05-15 16:00] VITALS: BP 107/75
== END 2023-05-15 16:09 | disposition home or self-care (01) ==
LOC: ER 14:04
PROVIDERS: Emergency Medicine; Student in an Organized Health Care Education/Training Program
DX: J44.9 Chronic obstructive pulmonary disease, unspecified (principal); J06.9 Acute upper respiratory infection, unspecified; I11.0 Hypertensive heart disease with heart failure; I50.9 Heart failure, unspecified; J96.11 Chronic respiratory failure with hypoxia; Z20.822 Contact with and (suspected) exposure to COVID-19; Z99.81 Dependence on supplemental oxygen; Z88.8 Allergy status to other drugs, medicaments and biological substances; Z79.52 Long term (current) use of systemic steroids; Z79.899 Other long term (current) drug therapy; Z79.51 Long term (current) use of inhaled steroids; Z87.891 Personal history of nicotine dependence
CPT/HCPCS: 0241U; 71046; 80053; 83880; 84484; 85025; 93005; 93010; 99285-25; J7512

== ENCOUNTER 2023-10-25 23:57 | Inpatient (IN) | payer OTHER ==
[~2023-10-25] VITALS: Ht 167.6 cm; Wt 49.5 kg
[2023-10-26 00:24] LABS: BASOPHILS ABSOLUTE AUTO 0.05 K/mm3 (0.00-0.23); BASOPHILS PERCENT AUTO 0 % (0-2); EOSINOPHILS ABSOLUTE AUTO 0.02 K/mm3 (0.00-0.68); EOSINOPHILS PERCENT AUTO 0 % (0-6); Hematocrit 43.9 % (37.0-53.0); Hemoglobin 14.1 g/dL (13.5-17.5); IMMATURE GRAN ABSOLUTE AUTO 0.08 K/mm3 (0.00-0.10); IMMATURE GRAN PERCENT AUTO 1 % (0-1); LYMPHOCYTES ABSOLUTE AUTO 1.32 K/mm3 (0.84-5.20); LYMPHOCYTES PERCENT AUTO 8 % (21-46); MONOCYTES ABSOLUTE AUTO 1.31 K/mm3 (0.16-1.47); MONOCYTES PERCENT AUTO 8 % (4-13); Mean Corpuscular HGB 29.9 pg (26.0-34.0); Mean Corpuscular HGB Conc 32.1 g/dL (31.5-36.5); Mean Corpuscular Volume 93 fL (80-100); Mean Platelet Volume 9.3 fL (9.1-12.4); NEUTROPHILS ABSOLUTE AUTO 14.09 K/mm3 (1.96-9.15); NEUTROPHILS PERCENT AUTO 84 % (41-73); Platelet Count 240 K/mm3 (150-400); RDW Coefficient Variation 13.3 % (11.7-14.2); RDW Standard Deviation 45.5 fL (35.1-46.3); Red Blood Cell Count 4.72 M/mm3 (4.30-5.90); White Blood Cell Count 16.87 K/mm3 (4.00-11.30)
[2023-10-26 00:46] LABS: Albumin, Blood 3.8 g/dL (3.4-5.0); Bilirubin, Total 1.1 mg/dL (0.1-1.0); Bun/Creatinine Ratio 21.3 (12.0-20.0); Calcium, Blood 9.3 mg/dL (8.5-10.1); Creatinine, Blood 0.75 mg/dL (0.60-1.20); Globulin, Blood 3.9 g/dL (2.2-4.0); Potassium, Blood 4.3 mmol/L (3.5-5.5); Total Protein, Blood 7.7 g/dL (6.4-8.2)
[2023-10-26] MEDS ORDERED: NS 1,000 ML IV SCH ×2 (01:05→17:50)
[2023-10-26] MEDS ORDERED: CefTRIAXone Sodium 1,000 MG in NS 50 ML IV ONE (01:40)
[2023-10-26] MEDS ORDERED: Ondansetron HCl 2 MG / ML 2ML Vial IV PRN (02:35)
[2023-10-26] MEDS ORDERED: NS 1,000 ML IV ONE (02:35)
[2023-10-26 02:42] LABS: BASOPHILS ABSOLUTE AUTO 0.03 K/mm3 (0.00-0.23); BASOPHILS PERCENT AUTO 0 % (0-2); EOSINOPHILS ABSOLUTE AUTO 0.01 K/mm3 (0.00-0.68); EOSINOPHILS PERCENT AUTO 0 % (0-6); Hematocrit 38.5 % (37.0-53.0); Hemoglobin 12.4 g/dL (13.5-17.5); IMMATURE GRAN ABSOLUTE AUTO 0.04 K/mm3 (0.00-0.10); IMMATURE GRAN PERCENT AUTO 0 % (0-1); LYMPHOCYTES PERCENT AUTO 6 % (21-46); MONOCYTES ABSOLUTE AUTO 0.98 K/mm3 (0.16-1.47); MONOCYTES PERCENT AUTO 8 % (4-13); Mean Corpuscular HGB 30.1 pg (26.0-34.0); Mean Corpuscular HGB Conc 32.2 g/dL (31.5-36.5); Mean Corpuscular Volume 93 fL (80-100); Mean Platelet Volume 9.2 fL (9.1-12.4); NEUTROPHILS ABSOLUTE AUTO 10.85 K/mm3 (1.96-9.15); NEUTROPHILS PERCENT AUTO 86 % (41-73); Platelet Count 187 K/mm3 (150-400); RDW Coefficient Variation 13.2 % (11.7-14.2); RDW Standard Deviation 45.6 fL (35.1-46.3); Red Blood Cell Count 4.12 M/mm3 (4.30-5.90); White Blood Cell Count 12.61 K/mm3 (4.00-11.30)
[2023-10-26 02:44] LABS: Source, Urine Clean Catch
[2023-10-26 02:52] LABS: Bilirubin, Urine Neg (Neg); Blood, Urine 2+ (Neg); Glucose Qualitative, Urine Neg (Neg); Ketones, Urine 1+ (Neg); Leukocyte Esterase, Urine Neg (Neg); Nitrite, Urine Neg (Neg); Protein, Urine Neg (Neg); Specific Gravity, Urine 1.015 (1.003-1.022); Urobilinogen, Urine NORM (Normal)
[2023-10-26 03:02] LABS: Appearance, Urine Clear (Clear); Color, Urine Pale Yellow (P-Yellow)
[2023-10-26 03:03] LABS: Bacteria Rare /hpf; Red Blood Cells, Urine 0-2 /hpf (0-2); Squamous Epithelial Cells Rare /hpf (Few); White Blood Cells, Urine 0-2 /hpf (0-5)
[2023-10-26 03:03] LABS: International Normalized Ratio 0.98; Prothrombin Time Results 10.5 Sec (9.7-11.5)
[2023-10-26] MEDS ORDERED: TRELEGY ELLIPT1 EAC1 INH (03:13)
[2023-10-26] MEDS ORDERED: TERB250 PO (03:14)
[2023-10-26] MEDS ORDERED: Norco 5-325 Ta1 EACH PO (03:16)
[2023-10-26 03:24] LABS: Albumin, Blood 3.1 g/dL (3.4-5.0); Bun/Creatinine Ratio 20.6 (12.0-20.0); Calcium, Blood 8.4 mg/dL (8.5-10.1); Creatinine, Blood 0.68 mg/dL (0.60-1.20); Globulin, Blood 3.2 g/dL (2.2-4.0); Potassium, Blood 4.3 mmol/L (3.5-5.5); Total Protein, Blood 6.3 g/dL (6.4-8.2)
[2023-10-26] MEDS ORDERED: Ventolin/Prove6.7 GM INH (03:25)
[2023-10-26] MEDS ORDERED: ANTIFUNGAL30 GM TOP (03:32)
[2023-10-26 03:33] LABS: Influenza A, PCR NEGATIVE (NEGATIVE); Influenza B, PCR NEGATIVE (NEGATIVE); Resp Syncytial Virus, PCR NEGATIVE (NEGATIVE); SARS-Cov-2 (COVID-19) PCR, MMC NEGATIVE (NEGATIVE)
[2023-10-26 03:49] VITALS: BP 139/82
[2023-10-26] MEDS ORDERED: Albuterol 2.5 MG/3 ML VIAL INH SCH (04:00)
[2023-10-26] MEDS ORDERED: Mometasone/Formoterol MDI 200/5 mcg 13 GM INH SCH (04:05)
[2023-10-26] MEDS ORDERED: Albuterol HFA200 ACT/6.7 GM INH INH PRN (04:05)
[2023-10-26] MEDS ORDERED: GuaiFENesin 100 MG/5 ML 5ML UDC PO PRN (04:50)
[2023-10-26] MEDS ORDERED: HYDROcodone 5-APAP 325 TAB PO PRN (06:05)
[2023-10-26] MEDS ORDERED: Misc. Inhaler INH SCH (06:15)
[2023-10-26 07:45] VITALS: BP 124/84
[2023-10-26] MEDS ORDERED: Enoxaparin 40 MG/0.4 ML SYR SC SCH (09:00)
[2023-10-26] MEDS ORDERED: Metoprolol Succinate 50 MG TABCR PO SCH (09:00)
[2023-10-26] MEDS ORDERED: MethylPREDNISolone Sod Succ 125 MG Vial IV SCH (09:00)
[2023-10-26] MEDS ORDERED: Terbinafine 250 MG Tab PO SCH (09:00)
[2023-10-26] MEDS ORDERED: Azithromycin 500 MG in NS 250 ML IV SCH (09:00)
[2023-10-26 12:04] LABS: Adenovirus Not Detected (NOT DETECT); Bordetella pertussis Not Detected (NOT DETECT); Chlamydophila pneumoniae Not Detected (NOT DETECT); Coronavirus 229E Not Detected (NOT DETECT); Coronavirus HKU1 Not Detected (NOT DETECT); Coronavirus NL63 Not Detected (NOT DETECT); Coronavirus OC43 Not Detected (NOT DETECT); Human Metapneumovirus Not Detected (NOT DETECT); Human Rhinovirus/Enterovirus Not Detected (NOT DETECT); Influenza A/2009-H1 Not Detected (NOT DETECT); Influenza A/H1 Not Detected (NOT DETECT); Influenza A/H3 Not Detected (NOT DETECT); Influenza B Not Detected (NOT DETECT); Mycoplasma pneumoniae Not Detected (NOT DETECT); Parainfluenza Virus 1 Not Detected (NOT DETECT); Parainfluenza Virus 2 Not Detected (NOT DETECT); Parainfluenza Virus 3 Not Detected (NOT DETECT); Parainfluenza Virus 4 Not Detected (NOT DETECT); Respiratory Syncytial Virus Not Detected (NOT DETECT); SARS-Cov-2 (COVID-19), BioFire Not Detected (NOT DETECT)
[2023-10-26 15:11] VITALS: BP 97/65
--- NOTE | 2023-10-26 17:32 | NUR ---
SUMMARY- PT A/O X4, CHF EXAC EARLY PNEUMONIA. CHRONIC OXYGEN USE. ON BASELINE 2L. PT RESP EVEN UNLABORED AT REST, DYSPNEA WITH MIN ACTIVITY. DIFFICULTY TALKING OR EATING RELATED TO BREATHING NEEDS. DUONEBS ROUTINE. PT'S LUNGS SEVERELY DIMINISHED THROUGHOUT. SOUNDS TIGHT ON EXP FAINT EXP WHEEZE. FREQ MOIST CONGESTED COUGH WITH MIN PRODUCION. MINIMIZE ACTIVITY TODAY KEPT ON BEDREST SO NOT TO CONSERVE RESP RESERVES. PT STATES MILD CHEAT PAIN INTERMITTANT WITH DEEP INSP ONLY. TROPONINS NEGATIVE. BLOOD PRESURE 1511 WAS 97/65 HR 89 (CAME DOWN FROM 110'S THIS AM), RECHECKED BP AT 1740 WAS 98/61 HR 90, CALL PLACED TO DR FINK. COMPLETED 1L NS OVER THE DAY. VOIDING WITHOUT DIFFICUTY. STATES NO APPETITE. CHANGED DIET TO MINCED AND MOIST PT STATES DIFFICULTY CHEWING WITH MISSING TEETH. PT ALSO DRINKS ENSURE, ORDERED SUPPLIMENTS TO COME BID. WILL REPORT TO AUGUSTIN THEODORE
[2023-10-26 17:39] VITALS: BP 98/61
--- NOTE | 2023-10-26 17:46 | NUR ---
NOTIFIED DR FINK OF LOW BP THIS PM X2. ORDERED NS @150ML/HR
[2023-10-26 20:12] VITALS: BP 112/68
[2023-10-26] MEDS ORDERED: CefTRIAXone Sodium 1,000 MG in NS 100 ML IV SCH (21:00)
[2023-10-26] MEDS ORDERED: TERBINAFINE TOP SCH (21:00)
--- NOTE | 2023-10-27 04:32 | NUR ---
PT ABLE TO MAINTAIN GOOD O2 SATS WIHT 2 LITERS NC. NO BREATHING ISSUES OVERNIGHT. PT DID EXPRESS FRUSTRATION WITH PUREE/MINCED DIET, STATES HE DOES NOT HAVE ISSUES CHEWING FOODS. MD WAS NOTIFIED AND DIET CHANGED TO REGULAR.
[2023-10-27 04:57] VITALS: BP 108/66
[2023-10-27 07:25] VITALS: BP 99/65
[2023-10-27] MEDS ORDERED: Metoprolol Succinate 25 MG TABCR PO SCH (09:30)
[2023-10-27] MEDS ORDERED: PredniSONE 20 MG Tab PO SCH (12:00)
[2023-10-27 15:49] VITALS: BP 100/65
--- NOTE | 2023-10-27 18:48 | NUR ---
SUMMARY- PT A/O X4. GOT UP TO BATHROOM INDEPENDANT WITH SUPERVISION, GOOD STRENGTH, STEADY GAIT. HAD LG SOFT BM. TOLERATING SOLID FOOD BETTER TODAY, APPROX 50% MEALS AND DRINKS 2 ENSURE SUPPLEMENTS DAILY. VOIDING CLEAR YELLOW URINE. COMPLETED NS 150ML/HR FOR 24HRS. BP WAS LOW LAST PM AND THIS AM. DECREASED METOPROLOL SUCC DOSE. BP IMPROVED THIS AFTERNOON. BREATHING HAS IMPROVED, REMAINS DIMINISHED THROUGHOUT WITH OCC DRY BARKING COUGH. SENT SPUTUM SPECIMEN. OCC CLEARS UP SOME PHLEGM, OFF WHITE STRINGY. STATES CHEST PAIN WITH BREATHING IS GONE. BECOMES DYSPNIC AFTER AMBULATION AND TAKES ABOUT 5 MINUTES WITH OXYGEN UP TO 4L TO RECOVER. O2 KEPT AT 2L NC. WILL REPORT TO AUGUSTIN THEODORE.
[2023-10-27 20:08] VITALS: BP 114/67
[2023-10-27] MEDS ORDERED: GuaiFENesin 600 MG TabCR PO SCH (21:00)
[2023-10-27] MEDS ORDERED: Lactobacil 2-S.Thermo-Bifido 1 1 Cap PO SCH (21:00)
[2023-10-28 02:20] VITALS: BP 106/69
[2023-10-28] MEDS ORDERED: Acetylcysteine 200 MG/ML 30ml Inhalation INH SCH (03:25)
--- NOTE | 2023-10-28 04:18 | NUR ---
SHIFT SUMMARY PATIENT HAD NO ACUTE CHANGES. AXOX 4 AND SBA TO BR. USES URINAL AT BEDSIDE. SOB W/EXERTION. ON 2L O2 NC AND BASELINE. RT IN FOR MULTIPLE BREATHING TX. VSS/AFEBRILE. DENIES CHEST PAIN AND N/V. PIV REMAINS INTACT. IV ABX INFUSED. SLEPT ON/OFF T/O SHIFT. COOPERATIVE WITH CARE. CALL LIGHT IN REACH. BED IN LOWEST POSITION. WILL CONTINUE TO MONITOR UNTIL DAY SHIFT NURSE ASSUMES CARE.
[2023-10-28] MEDS ORDERED: Acetylcysteine 200 MG/ML 4ML Vial INH SCH (06:25)
[2023-10-28 07:33] VITALS: BP 113/62
[2023-10-28] MEDS ORDERED: Metoprolol Succinate 25 MG TABCR PO SCH (09:00)
[2023-10-28] MEDS ORDERED: HYDROcodone 5-APAP 325 TAB PO PRN (10:00)
[2023-10-28] MEDS ORDERED: MethylPREDNISolone Sod Succ 125 MG Vial IV SCH (12:00)
--- NOTE | 2023-10-28 13:11 | NUR ---
OBSERVED STUDENT START IV IN RAF. STUDENT FOLLOWED IV INSERTION PROTOCOL. NO CONCERNS WITH IV INSERTION.
[2023-10-28 16:08] VITALS: BP 129/78
--- NOTE | 2023-10-28 17:40 | NUR ---
SHIFT SUMMARY PATIENT STATES BREATHING TREATMENTS HELPING REDUCE SHORTNESS OF BREATH, HE STATES SPUTUM IS THINING OUT SOME AND EASIER TO GET OUT. HE IS ORIENTED X4 AND COOPERATIVE WITH CARE, USES CALL LIGHT APPROPRIATELY. BED IN LOW POSITION, CALL LIGHT IN REACH. WILL CONTINUE TO MONITOR.
[2023-10-28 19:34] VITALS: BP 138/77
[2023-10-28] MEDS ORDERED: NS 250 ML IV PRN (23:00)
[2023-10-29 04:54] LABS: Hematocrit 33.7 % (37.0-53.0); Hemoglobin 10.7 g/dL (13.5-17.5); Mean Corpuscular HGB 29.6 pg (26.0-34.0); Mean Corpuscular HGB Conc 31.8 g/dL (31.5-36.5); Mean Corpuscular Volume 93 fL (80-100); Mean Platelet Volume 9.9 fL (9.1-12.4); Platelet Count 228 K/mm3 (150-400); RDW Standard Deviation 47.8 fL (35.1-46.3); Red Blood Cell Count 3.61 M/mm3 (4.30-5.90); White Blood Cell Count 5.59 K/mm3 (4.00-11.30)
--- NOTE | 2023-10-29 05:06 | NUR ---
SHIFT SUMMARY PATIENT SLEEPING BETTER TONIGHT. O2/2L/NC CONTINUOUS. SOLUMEDROL IVP AT MIDNIGHT. RT SKIPPED HIS 0400 DUONEB BECAUSE HE WAS SOUND ASLEEP.
[2023-10-29 05:15] LABS: Bun/Creatinine Ratio 29.9 (12.0-20.0); Calcium, Blood 8.6 mg/dL (8.5-10.1); Creatinine, Blood 0.57 mg/dL (0.60-1.20)
[2023-10-29 06:07] VITALS: BP 126/74
[2023-10-29 07:30] VITALS: BP 143/83
[2023-10-29] MEDS ORDERED: Ergocalciferol 50000 Intn'l Units PO SCH (09:00)
[2023-10-29] MEDS ORDERED: Saline Nasal Spray 45 ML PRN (11:35)
[2023-10-29] MEDS ORDERED: Nystatin 100,000 Unit/ML Susp 5 ML UDC PO SCH (13:00)
[2023-10-29 15:52] VITALS: BP 128/79
[2023-10-29] MEDS ORDERED: Acetaminophen 325 MG TABLET PO PRN (18:25)
--- NOTE | 2023-10-29 19:25 | NUR ---
DAY SHIFT SUMMARY: A&Ox4. PLEASANT AND COOPERATIVE WITH CARE. CALLS APPROPRIATELY AND IS ABLE TO COMMUNICATE NEEDS EFFECTIVELY. DYSPNIC WITH EXERTION. SPO2 @ 2LPM/NC SAME HOME BASELINE. Rx FOR SALINE NASAL SPRAY AND NYSTATIN SUSPENSION OBTAINED TODAY. 1/2 TAB NORCO GIVEN FOR C/O PAIN THIS MORNING. OBTAINED ORDER FOR APAP FOR ANY FURTHER C/O PAIN NORCO IS ONLY AVAILABLE PRN. REFUSED MUCOMYST TODAY STATING IT MAKES HIM FEEL MORE ANXIOUS AND DYSNPIC. PREFERS DOOR LEFT OPEN DUE TO ANXIETY. REPORT TO ONCOMING RN.
[2023-10-29 19:49] VITALS: BP 137/76
[2023-10-30 03:47] VITALS: BP 115/86
[2023-10-30 04:34] LABS: Bun/Creatinine Ratio 32.1 (12.0-20.0); Calcium, Blood 8.5 mg/dL (8.5-10.1); Creatinine, Blood 0.56 mg/dL (0.60-1.20); Potassium, Blood 4.3 mmol/L (3.5-5.5)
--- NOTE | 2023-10-30 05:26 | NUR ---
SHIFT SUMMARY 68 YR M ADMITTED ON 10/25/23. DNR. NO ACUTE CHANGES THIS SHIFT. PT STATES HE IS FEELING BETTER. HE STATES THAT THE NYSTATIN SWICH AND SWALLOW IS HELPING WITH THE RASH AROUND HIS MOUTH. PT DECLINED PAIN MEDS THIS SHIFT. A&O X 4 AND USES THE URINAL INDEPENDANTLY. CALLS APPROPRIATELY FOR ASSISTANCE.
[2023-10-30 07:37] VITALS: BP 119/77
[2023-10-30] MEDS ORDERED: Fluticasone 0.05% Nasal Spray SCH (09:00)
[2023-10-30 15:58] VITALS: BP 127/82
--- NOTE | 2023-10-30 18:50 | NUR ---
SHIFT SUMMARY PATIENT IS AOX4, ON 2L NC UP TO 4L WITH EXERTION. PATIENT DOES GET SOB AND DYSPNEA WITH ACTIVITY. USES URINE AT BEDSIDE. TOLERATED PO INTAKE. PRN BREATHING TX, STEROIDS, AND NYSTATIN. PATIENT IS ABLE TO MAKE NEEDS KNOWN. CALL LIGHT IN REACH.
[2023-10-30 19:38] VITALS: BP 132/86
[2023-10-31 04:54] VITALS: BP 131/78
--- NOTE | 2023-10-31 05:19 | NUR ---
SHIFT SUMMARY 68 YR M ADMITTED ON 10/26/23. FULL CODE. NO ACUTE CHANGES THIS SHIFT. IV IN LEFT UPPER ARM BEGAN LEAKING SO IT WAS DC'D AND A NEW IV WAS PLACED IN THE RIGHT FOREARM. PT TOLERATED IT WELL. PT STATES HE IS STARTING TO FEEL BETTER AND HE COUGHED NOTICABLY LESS THIS SHIFT THAN THE PREVIOUS NIGHT. CALLS APPROPRIATELY AND ABLE TO MAKE NEEDS KNOWN. BED IN LOW POSITION AND CALL LIGHT IN REACH.
[2023-10-31 07:46] VITALS: BP 127/79
[2023-10-31] MEDS ORDERED: Ipratropium/Albuterol SulF 2.5-0.5MG/3 ML Amp INH SCH (08:40)
[2023-10-31] MEDS ORDERED: Albuterol 2.5 MG/3 ML VIAL INH PRN (08:40)
--- NOTE | 2023-10-31 09:00 | NUR ---
pt laying in bed awake a/ox4, pleasant and cooperative with care, follows commands well, denies any complaint this am, lungs are course t/o, has a productive cough, he reports last sputum was clear, currently on 2 liters 02 via n/c, resp even and unlabored at rest, his baseline is 2 liters, hrr, no edema noted, ppp+1, cap refill <3 sec, vs stable, afebrile, piv to rfa site is clear and patent, btx4, abd flat soft nontender, voids via urinal clear yellow urine, skin c/w/d, maew, dequan, call light in reach.
[2023-10-31] MEDS ORDERED: Albuterol 2.5 MG/3 ML VIAL INH SCH (12:05)
[2023-10-31 15:43] VITALS: BP 137/81
--- NOTE | 2023-10-31 18:36 | NUR ---
pt had an uneventful day, gets himself up to bathroom indep, no complaints or acute changes this shift. call light in reach.
[2023-10-31 19:37] VITALS: BP 134/80
[2023-11-01 02:04] VITALS: BP 128/77
--- NOTE | 2023-11-01 06:36 | NUR ---
SHIFT SUMMARY AOX4. VSS. SPO2 >90% ON 2L O2 VIA NC. DENIES DYSPNEA. LABOURED BREATHING @BEGINNING OF SHIFT, BREATHING HAS SINCE RELAXED. RT IN CARE c PT. BS DIM & TIGHT. HAS REDENED SWOLLEN MOUTH FROM THRUSH, PROVIDED NYSTATIN SWISH & SWALLOW. CALL LIGHT IN REACH, WILL MONITOR.
[2023-11-01 07:28] VITALS: BP 131/82
[2023-11-01] MEDS ORDERED: Albuterol HFA200 ACT/6.7 GM INH INH SCH (12:35)
[2023-11-01 15:29] VITALS: BP 119/72
[2023-11-01] MEDS ORDERED: MethylPREDNISolone Sod Succ 40 MG VIAL IV SCH (16:00)
--- NOTE | 2023-11-01 18:30 | NUR ---
SHIFT SUMMARY PATIENT WITH NO ACUTE EVENTS DURING SHIFT. HE IS UP TO BATHROOM AD KRISTINE. HE IS TOLERATING SOLUMEDROL TID TODAY. MEDICATED FOR PAIN PER EMAR WITH GOOD RELIEF. BED IN LOW POSITION, CALL LIGHT IN REACH. HE IS ABLE TO MAKE NEEDS KNOWN.
[2023-11-01 20:13] VITALS: BP 156/90
[2023-11-02 03:23] VITALS: BP 110/94
--- NOTE | 2023-11-02 05:14 | NUR ---
SHIFT SUMMARY. NO ACUTE CHANGES OR EVENTS NOTED THIS SHIFT. PATIENT IS ALERT AND ORIENTED AND ABLE TO MAKE HIS NEEDS KNOWN. PATIENT USING URINAL INDEPENDENTLY AT BEDSIDE. NEW IV PLACED THIS SHIFT; SEE PERIPHERAL IV INTERVENTION. BED IS LOCKED IN THE LOWEST POSITION [facility] CALL LIGHT IN REACH. NO S/S OF DISTRESS NOTED. CARE IS ONGOING.
[2023-11-02 07:48] VITALS: BP 114/74
[2023-11-02] MEDS ORDERED: PredniSONE 20 MG Tab PO SCH (09:00)
[2023-11-02] MEDS ORDERED: METO50ER PO (10:45)
[2023-11-02] MEDS ORDERED: GUAI600T33 PO (10:46)
[2023-11-02] MEDS ORDERED: NASAL SPRAY88 ML (10:48)
[2023-11-02] MEDS ORDERED: ALBU2.5V5 INH (10:48)
[2023-11-02] MEDS ORDERED: CALCIUM CARBON500 M1 PO (10:50)
[2023-11-02] MEDS ORDERED: Prednisone10 MG PO (10:55)
[2023-11-02] MEDS ORDERED: NYSTATIN100000 U13 MT (12:16)
--- NOTE | 2023-11-02 16:50 | NUR ---
DISCHARGE SUMMARY PATIENT WITH NO ACUTE EVENTS DURING SHIFT. HE IS GETTING UP TO BATHROOM INDEPENDENT WITH 2LPM O2 AND TOLERATING ORAL PREDNISONE. MEDICATION AND EDUCATION PACKET PRINTED FOR PATIENT AND REVIEWED WITH PT AND . CONSENT SIGNED. IV REMOVED BY PUBLIC HEALTH SERVICE OFFICER WITH NO ISSUE. PATIENT WHEELED OUT OF HOSPITAL BY WHO WILL BE DRIVING HIM HOME VIA PRIVATE VEHICLE.
== END 2023-11-02 13:47 | disposition home or self-care (01) | DRG 871 ==
LOC: ER 23:57 → MEDS 10-26 02:33 → ENPENDDIS 11-02 10:44 → MEDS 11-02 13:47
PROVIDERS: Emergency Medicine; Internal Medicine; ADMIT Internal Medicine
DX: A41.9 Sepsis, unspecified organism (principal); J18.9 Pneumonia, unspecified organism; J96.21 Acute and chronic respiratory failure with hypoxia; E87.20 Acidosis, unspecified; J44.0 Chronic obstructive pulmonary disease with (acute) lower respiratory infection; J44.1 Chronic obstructive pulmonary disease with (acute) exacerbation; I50.32 Chronic diastolic (congestive) heart failure; R65.20 Severe sepsis without septic shock; I11.0 Hypertensive heart disease with heart failure; E55.9 Vitamin D deficiency, unspecified; Z99.81 Dependence on supplemental oxygen; Z79.52 Long term (current) use of systemic steroids; Z79.51 Long term (current) use of inhaled steroids; Z87.891 Personal history of nicotine dependence; Z88.8 Allergy status to other drugs, medicaments and biological substances
CPT/HCPCS: 0202U; 0241U; 36415; 71045; 80048; 80053; 81001; 82306; 83605; 83880; 84484; 84550; 85025; 85027; 85610; 87040; 87070; 87205; 94640; 94664; 94760; 96361; 96365; 96375; 99285; A9270; J0456; J0696; J1650; J2920; J2930; J7030; J7050; J7512

== ENCOUNTER 2024-07-05 12:03 | Inpatient (IN) | payer OTHER ==
[~2024-07-05] VITALS: Ht 167.6 cm; Wt 49.3 kg
[~2024-07-05 12:03] MED LIST changes: +ALBU2.5V5 INH; +ANTIFUNGAL30 GM TOP; +ASPI81CH PO; +CALCIUM CARBON500 M1 PO; +NASAL SPRAY88 ML; +NYSTATIN100000 U13 MT; +Norco 5-325 Ta1 EACH PO; +ONDA4ODT MM; +Prednisone10 MG PO; +TERB250 PO; +Ventolin/Prove6.7 GM INH
[2024-07-05 15:18] LABS: Hematocrit 40.9 % (37.0-53.0); Hemoglobin 12.9 g/dL (13.5-17.5); Mean Corpuscular HGB 29.5 pg (26.0-34.0); Mean Corpuscular HGB Conc 31.5 g/dL (31.5-36.5); Mean Corpuscular Volume 94 fL (80-100); Mean Platelet Volume 10.3 fL (9.1-12.4); Platelet Count 244 K/mm3 (150-400); RDW Coefficient Variation 14.2 % (11.7-14.2); Red Blood Cell Count 4.37 M/mm3 (4.30-5.90); White Blood Cell Count 11.94 K/mm3 (4.00-11.30)
[2024-07-05 15:38] LABS: BAND PERCENT MAN 10 % (0-8); BASOPHILS ABSOLUTE MAN 0.11 K/mm3 (0.00-0.23); BASOPHILS PERCENT MAN 1 % (0-2); EOSINOPHILS PERCENT MAN 0 % (0-6); LYMPHOCYTES ABSOLUTE MAN 1.19 K/mm3 (0.84-5.20); LYMPHOCYTES PERCENT MAN 10 % (21-46); MONOCYTES ABSOLUTE MAN 0.71 K/mm3 (0.16-1.47); MONOCYTES PERCENT MAN 6 % (4-13); NEUTROPHILS ABSOLUTE MAN 9.91 K/mm3 (1.96-9.15); SEG NEUTROPHILS PERCENT MAN 73 % (41-73); TOTAL CELLS COUNTED 100
[2024-07-05 15:46] LABS: Albumin, Blood 3.2 g/dL (3.4-5.0); Albumin/Globulin Ratio 0.8 (0.8-1.8); Bilirubin, Total 0.8 mg/dL (0.1-1.0); Bun/Creatinine Ratio 31.4 (12.0-20.0); Calcium, Blood 8.7 mg/dL (8.5-10.1); Creatinine, Blood 0.92 mg/dL (0.60-1.20); Globulin, Blood 3.9 g/dL (2.2-4.0); Potassium, Blood 4.5 mmol/L (3.5-5.5); Total Protein, Blood 7.1 g/dL (6.4-8.2)
[2024-07-05] MEDS ORDERED: Ipratropium/Albuterol SulF 2.5-0.5MG/3 ML Amp INH PRN (16:30)
[2024-07-05] MEDS ORDERED: Albuterol 2.5 MG/3 ML VIAL INH SCH (16:40)
[2024-07-05] MEDS ORDERED: Ipratropium/Albuterol SulF 2.5-0.5MG/3 ML Amp INH ONE (16:40)
[2024-07-05] MEDS ORDERED: Azithromycin 500 MG in NS 250 ML IV ONE (16:45)
[2024-07-05] MEDS ORDERED: MethylPREDNISolone Sod Succ 125 MG Vial IV ONE (16:45)
[2024-07-05] MEDS ORDERED: NS 1,000 ML IV SCH ×2 (16:45→18:05)
[2024-07-05] MEDS ORDERED: CefTRIAXone Sodium 1,000 MG in NS 50 ML IV ONE (16:45)
[2024-07-05 17:22] LABS: Base Excess Venous 5.1 mmol/L; Bicarbonate Venous 27.8 mmol/L (24.0-30.0); PCO2 Venous 54.2 mmHg (38-42); pH Blood Venous 7.36 (7.34-7.37)
[2024-07-05] MEDS ORDERED: LORazepam 2 MG/ML 1ML Injection IV ONE (17:55)
[2024-07-05] MEDS ORDERED: FLU VACC TS2024-25(6MOS UP)/PF 45 MCG/0.5 ML SYRINGE IM ONE (18:00)
[2024-07-05] MEDS ORDERED: Ipratropium/Albuterol SulF 2.5-0.5MG/3 ML Amp INH SCH (18:05)
[2024-07-05] MEDS ORDERED: Ondansetron HCl 2 MG / ML 2ML Vial IV PRN (18:05)
[2024-07-05] MEDS ORDERED: Albuterol 2.5 MG/3 ML VIAL INH PRN (18:05)
[2024-07-05] MEDS ORDERED: Lactated Ringer's 1,000 ML IV SCH (18:10)
[2024-07-05] MEDS ORDERED: LORazepam 2 MG/ML 1ML Injection IV PRN (18:10)
[2024-07-05 19:16] LABS: Base Excess Venous 0.5 mmol/L; Bicarbonate Venous 24.4 mmol/L (24.0-30.0); pH Blood Venous 7.35 (7.34-7.37)
[2024-07-05 20:30] VITALS: BP 110/71
[2024-07-05 20:45] VITALS: BP 130/70
[2024-07-05 21:00] VITALS: BP 102/68
[2024-07-05] MEDS ORDERED: GuaiFENesin 600 MG TabCR PO SCH (21:00)
[2024-07-05 22:54] VITALS: BP 130/78
--- NOTE | 2024-07-05 22:56 | NUR ---
PT TRANSFERRED TO PCU FROM ICU @ ~2245. AOX4, PLEASANT, COOPERATIVE WITH CARE, ABLE TO MAKE NEEDS KNOWN. ADMITTED FOR COPD EXACERBATION. CURRENTLY ON 3 L O2 VIA NC WHICH PER REPORT IS PT BASELINE. CPAP IN ROOM TO BE ENCOURAGED, PT REQUESTED BRIEF BREAK BUT WAS AGREEABLE TO PUTTING IT BACK ON AFTER BRIEF BREAK. CURRENTLY SATURATING AT 98% ON 3 L O2. NO PAIN REPORTED. SINUS TACHYCARDIA WITH HR IN 120s-130s. VERY MILDLY TACHYPNEIC. LUNG SOUNDS BROADLY DIMINISHED. WAS ABLE TO SLIDE HIMSELF OVER FROM ICU BED TO PCU BED WITH NO ASSISTANCE. FLUIDS INFUSING. BED LOCKED IN LOWEST POSITION. CALL LIGHT LEFT WITHIN REACH. CONTINUING TO MONITOR.
[2024-07-06] VITALS (7 sets, daily range): BP systolic 95–125; BP diastolic 64–74
[2024-07-06] MEDS ORDERED: MethylPREDNISolone Sod Succ 125 MG Vial IV SCH
--- NOTE | 2024-07-06 04:25 | NUR ---
SHIFT SUMMARY. SHIFT HAS GONE WELL OVERALL. PT CONDITION UNCHANGED FROM INITIAL NOTE, SEE FOR EXPANDED DETAILS. VITALS REMAIN STABLE, BP SOFT AT TIMES BUT MAP HAS REMAINED >65. CONTINUES TO WEAR CPAP THROUGH NIGHT, REQUESTS BREAKS AT TIMES BUT IS ALWAYS AGREEABLE TO WEARING AGAIN AFTER SOME TIME. CONTINUES TO MAINTAIN ADEQUATE SATURATION ON 3-4 L O2 VIA NC WHEN NOT WEARING CPAP. URINE OUTPUT MINIMAL BUT CHARTED APPROPRIATELY. PT CONTINUES TO DENY PAIN. HR HAS COME DOWN WHILE PT IS SLEEPING WITH RATE CURRENTLY IN 100s RANGE. BED LOCKED IN LOWEST POSITION. CALL LIGHT LEFT WITHIN REACH. CONTINUING TO MONITOR.
[2024-07-06 04:27] LABS: Hematocrit 33.9 % (37.0-53.0); Hemoglobin 10.8 g/dL (13.5-17.5); Mean Corpuscular HGB 29.5 pg (26.0-34.0); Mean Corpuscular HGB Conc 31.9 g/dL (31.5-36.5); Mean Corpuscular Volume 93 fL (80-100); Mean Platelet Volume 10.5 fL (9.1-12.4); Platelet Count 176 K/mm3 (150-400); RDW Coefficient Variation 14.1 % (11.7-14.2); RDW Standard Deviation 48.1 fL (35.1-46.3); Red Blood Cell Count 3.66 M/mm3 (4.30-5.90); White Blood Cell Count 7.09 K/mm3 (4.00-11.30)
[2024-07-06 05:00] LABS: BAND PERCENT MAN 21 % (0-8); BASOPHILS PERCENT MAN 0 % (0-2); EOSINOPHILS PERCENT MAN 0 % (0-6); LYMPHOCYTES ABSOLUTE MAN 0.14 K/mm3 (0.84-5.20); LYMPHOCYTES PERCENT MAN 2 % (21-46); METAMYELOCYTE ABSOLUTE MAN 0.07 K/mm3 (0.00-0.00); METAMYELOCYTE PERCENT MAN 1 % (0-0); MONOCYTES ABSOLUTE MAN 0.28 K/mm3 (0.16-1.47); MONOCYTES PERCENT MAN 4 % (4-13); NEUTROPHILS ABSOLUTE MAN 6.59 K/mm3 (1.96-9.15); SEG NEUTROPHILS PERCENT MAN 72 % (41-73); TOTAL CELLS COUNTED 100
[2024-07-06 05:01] LABS: Albumin, Blood 2.5 g/dL (3.4-5.0); Albumin/Globulin Ratio 0.7 (0.8-1.8); Bilirubin, Total 0.3 mg/dL (0.1-1.0); Bun/Creatinine Ratio 32.5 (12.0-20.0); Calcium, Blood 8.4 mg/dL (8.5-10.1); Creatinine, Blood 0.68 mg/dL (0.60-1.20); Globulin, Blood 3.4 g/dL (2.2-4.0); Magnesium, Blood 2.1 mg/dL (1.6-2.4); Potassium, Blood 3.9 mmol/L (3.5-5.5); Total Protein, Blood 5.9 g/dL (6.4-8.2)
[2024-07-06] MEDS ORDERED: Omeprazole 20 MG CapCR PO SCH (06:00)
[2024-07-06] MEDS ORDERED: MONT10T PO (07:20)
--- NOTE | 2024-07-06 07:30 | NUR ---
assumption of care this rn assumed care at 0700 from vandana rn, and bedside shift report done. vital signs stable. tele sinus tach 120s. spo2 >90% on 3l nc, which is patient baseline. home med rec completed by this rn and education on compliance with medication, espeically medications that his nozzleman prescribes. patient verbalized understanding. patient is alert and oriented x4. neuro is intact. patient is able to make needs known and uses call light appropriately. patient denes pain, chest pain/pressure, or shortness of breath. lung sounds dim throughout. patient is a standby assist for safety. see shift assessment for further detials.
[2024-07-06] MEDS ORDERED: Saline Nasal Spray 45 ML PRN (08:10)
[2024-07-06] MEDS ORDERED: Metoprolol Succinate 50 MG TABCR PO SCH (09:00)
[2024-07-06] MEDS ORDERED: Aspirin 81 MG Chew PO SCH (09:00)
[2024-07-06] MEDS ORDERED: Misc. Inhaler INH SCH (09:00)
[2024-07-06] MEDS ORDERED: Enoxaparin 30 MG/0.3 ML SYR SC SCH (09:00)
--- NOTE | 2024-07-06 09:40 | NUR ---
UPDATE tele called about patient heart rate around 0750 am. this rn called md martinez and informed her of heart rate sustaining in yamile 120-130s and that the med rec has been completed. order for am morning metoprolol placed and patient received morning dose.
[2024-07-06] MEDS ORDERED: Acetaminophen 325 MG TABLET PO PRN (11:45)
[2024-07-06] MEDS ORDERED: TRELLEGY ELLIPTA INH SCH (12:15)
--- NOTE | 2024-07-06 15:57 | NUR ---
update this rn called md martinez about patient heart rate sustaining in the 120s again and that patient is fluid positive for the day. to place new orders
[2024-07-06] MEDS ORDERED: dilTIAZem HCL 30 MG TAB PO PRN (16:00)
--- NOTE | 2024-07-06 17:07 | NUR ---
shift summary vitals remain stable. tele sinus tach 120s. spo2 >90% on 3l nc. see previous notes. neuro remain intact throughout the shift. no acute changes this shift.
[2024-07-06] MEDS ORDERED: CefTRIAXone Sodium 1,000 MG in NS 100 ML IV SCH (17:30)
[2024-07-06] MEDS ORDERED: Azithromycin 500 MG in NS 250 ML IV SCH (18:00)
[2024-07-06] MEDS ORDERED: Montelukast Sodium 10 MG Tab PO SCH (21:00)
[2024-07-06] MEDS ORDERED: Phenol/Sodium Phenolate Oral Spray 180 ML MM SCH (23:40)
[2024-07-07] VITALS (7 sets, daily range): BP systolic 97–135; BP diastolic 55–86
--- NOTE | 2024-07-07 04:38 | NUR ---
SHIFT SUMMARY. SHIFT HAS BEEN UNREMARKABLE. PT AOX4, PLEASANT, COOPERATIVE WITH CARE, CALLS APPROPRIATELY, ABLE TO MAKE NEEDS KNOWN. HAS BEEN ABLE TO REST COMFORTABLY THROUGHOUT MUCH OF SHIFT. REPORTED SOME MILD PLEURITIC PAIN EARLY IN SHIFT WHICH WAS MANAGED VIA PRN TYLENOL. FLUIDS INFUSING THROUGHOUT SHIFT. CONTINUES TO HAVE STABLE O2 DEMAND AND HAS BEEN ON 3 L O2 VIA NC THROUGHOUT SHIFT WITH SATS >92% WHICH IS PT BASELINE O2 USE. VITALS STABLE. URINE OUTPUT CONTINUES TO BE MINIMAL, CHARTED APPROPRIATELY. BED LOCKED IN LOWEST POSITION. CALL LIGHT LEFT WITHIN REACH. CONTINUING TO MONITOR.
[2024-07-07 04:52] LABS: Hematocrit 30.3 % (37.0-53.0); Hemoglobin 9.6 g/dL (13.5-17.5); Mean Corpuscular HGB 29.7 pg (26.0-34.0); Mean Corpuscular HGB Conc 31.7 g/dL (31.5-36.5); Mean Corpuscular Volume 94 fL (80-100); Mean Platelet Volume 9.9 fL (9.1-12.4); Platelet Count 182 K/mm3 (150-400); RDW Coefficient Variation 14.3 % (11.7-14.2); RDW Standard Deviation 49.1 fL (35.1-46.3); Red Blood Cell Count 3.23 M/mm3 (4.30-5.90)
[2024-07-07 05:21] LABS: BAND PERCENT MAN 5 % (0-8); BASOPHILS PERCENT MAN 0 % (0-2); EOSINOPHILS PERCENT MAN 0 % (0-6); LYMPHOCYTES PERCENT MAN 5 % (21-46); MONOCYTES ABSOLUTE MAN 0.24 K/mm3 (0.16-1.47); MONOCYTES PERCENT MAN 3 % (4-13); NEUTROPHILS ABSOLUTE MAN 7.45 K/mm3 (1.96-9.15); SEG NEUTROPHILS PERCENT MAN 87 % (41-73); TOTAL CELLS COUNTED 100
[2024-07-07 05:35] LABS: Albumin, Blood 2.3 g/dL (3.4-5.0); Albumin/Globulin Ratio 0.7 (0.8-1.8); Bilirubin, Total 0.2 mg/dL (0.1-1.0); Calcium, Blood 8.5 mg/dL (8.5-10.1); Creatinine, Blood 0.6 mg/dL (0.60-1.20); Globulin, Blood 3.4 g/dL (2.2-4.0); Potassium, Blood 3.8 mmol/L (3.5-5.5); Total Protein, Blood 5.7 g/dL (6.4-8.2)
[2024-07-07] MEDS ORDERED: Sodium Chloride 0.45% 1,000 ML IV SCH (08:40)
[2024-07-07] MEDS ORDERED: Acetylcysteine 200 MG/ML 4ML Vial INH SCH (08:40)
[2024-07-07] MEDS ORDERED: Metoprolol Succinate 50 MG TABCR PO SCH (09:00)
--- NOTE | 2024-07-07 10:06 | NUR ---
am note this rn assumed care at 0700 from vandana rn and did bedside shift report. vital signs stable. spo2 >90% on 3l nc. patient is alert and oriented x4. neuro is intact. patient is able to make needs known and uses call light appropriately. denies pain, chest pain/pressure or shortness of breath. patient right lung sounds are coarse dim with expriatory wheeze, patient left lung sounds are coarse and dim. see shift assessment for further detials. md martinez in room and making changes to medication for better rate control, and added new breathing treatments to increase air exchange in lungs
--- NOTE | 2024-07-07 11:29 | NUR ---
update patient requestiing to go on bipap due to difficulty breathing. patient placed on bipap with a 8l bleed in. respiratory aware
--- NOTE | 2024-07-07 17:06 | NUR ---
shift summary patient neuro remains intact. vitals remain stable. patient used bipap once today and then got off of it and ate lunch later afternoon. no acute changes. plan remains up to date
[2024-07-07] MEDS ORDERED: Polyethylene Glycol 3350 17 gm PO SCH (21:00)
--- NOTE | 2024-07-08 00:14 | NUR ---
0000 NOTE. PT DOING WELL. HAS BEEN WEARING CPAP THROUGHOUT MOST OF NIGHT THUS FAR, REQUESTING BREAK ON TAKING 0000 VITALS. CONTINUES TO DENY PAIN. VITALS STABLE. MAINTAINING ADEQUATE SATURATION ON 3 L O2 VIA NC. BED LOCKED IN LOWEST POSITION. CONTINUING TO MONTIOR.
[2024-07-08 04:23] VITALS: BP 92/53
--- NOTE | 2024-07-08 04:36 | NUR ---
SHIFT SUMMARY. SHIFT HAS BEEN UNREMARKABLE. PT AOX4, COOPERATIVE WITH CARE, ABLE TO MAKE NEEDS KNOWN. HAS CONTINUED TO MAINTAIN ADEQUATE SATURATION ON 3 L O2 VIA NC. VITALS STABLE OUTSIDE OF SOFT BP AT TIMES. MAP HAS REMAINED >=65 THROUGHOUT SHIFT. HAS DENIED PAIN THROUGHOUT SHIFT. CONTINUES TO HAVE MINIMAL URINE OUTPUT THROUGHOUT SHIFT. BED LOCKED IN LOWEST POSTIION. CALL LIGHT LEFT WITHIN REACH. CONTINUING TO MONITOR.
[2024-07-08 05:21] LABS: BASOPHILS PERCENT AUTO 0 % (0-2); EOSINOPHILS PERCENT AUTO 0 % (0-6); Hematocrit 30.9 % (37.0-53.0); Hemoglobin 9.6 g/dL (13.5-17.5); IMMATURE GRAN ABSOLUTE AUTO 0.04 K/mm3 (0.00-0.10); IMMATURE GRAN PERCENT AUTO 1 % (0-1); LYMPHOCYTES ABSOLUTE AUTO 0.37 K/mm3 (0.84-5.20); LYMPHOCYTES PERCENT AUTO 5 % (21-46); MONOCYTES ABSOLUTE AUTO 0.27 K/mm3 (0.16-1.47); MONOCYTES PERCENT AUTO 4 % (4-13); Mean Corpuscular HGB 29.3 pg (26.0-34.0); Mean Corpuscular HGB Conc 31.1 g/dL (31.5-36.5); Mean Corpuscular Volume 94 fL (80-100); Mean Platelet Volume 10.7 fL (9.1-12.4); NEUTROPHILS ABSOLUTE AUTO 7.07 K/mm3 (1.96-9.15); NEUTROPHILS PERCENT AUTO 91 % (41-73); Platelet Count 223 K/mm3 (150-400); RDW Coefficient Variation 14.6 % (11.7-14.2); RDW Standard Deviation 50.3 fL (35.1-46.3); Red Blood Cell Count 3.28 M/mm3 (4.30-5.90); White Blood Cell Count 7.75 K/mm3 (4.00-11.30)
[2024-07-08 05:56] LABS: Albumin, Blood 2.3 g/dL (3.4-5.0); Albumin/Globulin Ratio 0.7 (0.8-1.8); Bilirubin, Total 0.2 mg/dL (0.1-1.0); Bun/Creatinine Ratio 32.6 (12.0-20.0); Calcium, Blood 8.3 mg/dL (8.5-10.1); Creatinine, Blood 0.58 mg/dL (0.60-1.20); Globulin, Blood 3.1 g/dL (2.2-4.0); Potassium, Blood 3.8 mmol/L (3.5-5.5); Total Protein, Blood 5.4 g/dL (6.4-8.2)
--- NOTE | 2024-07-08 06:16 | NUR ---
DISCUSSION WITH PATIENT AFTER HANGING BAG OF FLUIDS FOR INFUSION. PT VERY CONCERNED ABOUT BECOMING FLUID OVERLOADED HE REPORTS THIS HAPPENED ON PREVIOUS ADMISSION. PT REQUESTED FOR FLUIDS TO BE SHUT OFF UNTIL HE HAS A CHANCE TO SPEAK WITH DOCTOR IN THE MORNING. FLUIDS STOPPED, CONTINUING TO MONITOR.
[2024-07-08 07:35] VITALS: BP 131/86
[2024-07-08 11:57] VITALS: BP 121/87
[2024-07-08] MEDS ORDERED: Nystatin 100,000 Unit/ML Susp 5 ML UDC SS SCH (12:20)
[2024-07-08] MEDS ORDERED: Chlorhexidine Mouth Care 15 ML UDC MT SCH (12:55)
[2024-07-08 16:39] VITALS: BP 112/56
--- NOTE | 2024-07-08 17:35 | NUR ---
SHIFT SUMMERY: NEURO: PT A&OX4. FOLLOWS COMMANDS AND MAKES NEEDS KNOWN TO STAFF. CALLS APPROPRIATELY. NO ACUTE NEURO SYMPTOMS. CARDIAC: PT REMAINED FREE OF ANY CP, PRESSURE OR TIGHTNESS. HR WAS IN THE 70-100'S TODAY. RESP: PT ON 3L NC WHICH IS BASELINE FOR PT. PT REPORTED SOB THAT GOT BETTER THROUGHOUT THE DAY. GI/: PT USED URINAL MOST OF THE DAY BUT GOT UP AND WALKED TO THE BATHROOM TO HAVE A BOWEL MOVEMENT. PT REPORTED FEELING NAUSIOUS THIS EVENING AND REQUESTED SOME ZOFRAN. PT WAS CHANGED TO MEDICAL STATUS. NO SIGNIFICANT EVENTS HAPPENED DURING THIS SHIFT. WILL CONTINUE TO CARE FOR PT TILL END OF SHIFT.
[2024-07-08 19:09] VITALS: BP 120/73
--- NOTE | 2024-07-08 23:42 | NUR ---
PT STATED DURING ROUNDS THAT IF HE WAS SLEEPING, DO NOT WAKE HIM FOR VS. PT CURRENTLY SLEEPING, RT WOKE HIM A WHILE AGO TO TRY TO MEDICATE HIM W/ SCHEDULED TREATMENT AND PT REFUSED, STATING HE JUST WANTED TO SLEEP.
[2024-07-09 01:10] VITALS: BP 130/81
[2024-07-09 07:53] VITALS: BP 107/68
[2024-07-09 12:45] VITALS: BP 115/69
[2024-07-09 15:58] VITALS: BP 121/83
--- NOTE | 2024-07-09 16:15 | NUR ---
PT TRANSFERRED TO ROOM 364 AT 1545 IN [facility] WITH BELONGINGS AND MEDS. PT HAS BEEN UP MOST OF THE DAY IN THE CHAIR AND SATTING 96-99% BASELINE 3LNC. RESP E/U, MIN SOB WITH ACTIVITY. PT HAS SCATTERED RHONCHI, CLEARS SECRETIONS. USING FLUTTER. TOLERATING FOOD AND FLUID.
[2024-07-09] MEDS ORDERED: NS 250 ML IV PRN (17:15)
--- NOTE | 2024-07-09 18:14 | NUR ---
TRANSFER NOTE PATIENT BROUGHT UP FROM PCU VIA WHEELCHAIR ON 3L NC WHICH IS PATIENTS BASELINE. SOB WITH EXERTION AND/OR TALKING. PURSED LIP BREATHING. SKIN IS FRAGILE WITH SCATTERED BRUISING AND SOME EDEMA TO LEFT ARM FROM INFILTRATED IV. LUNG SOUNDS ARE CRACKLY AND DIMINISHED. FLUTTER VALVE AT BEDSIDE. GOING THROUGH ORDERS PATIENT SPUTUM CX POSITIVE FOR MJ, NO ANTIFUNGALS ARE ON BOARD, DR. ALBRIGHT CALLED AND ORDERED PO DIFLUCAN DAILY TO START IN AM. PT DOES HAVE PATCHY WHITE GROWTH ON TONGUE. COMPLAINING OF PAIN TO GUMS, ORAL RINSE SCHEDULED. 1 PERSON ASSIST TO BATHROOM, EXTENSION TUBING HOOKED UP TO NASAL CANNULA WHEN UP TO BATHROOM. ABLE TO MAKE NEEDS KNOWN. CALL LIGHT IN REACH. SCD'S SET UP. CONTINUOUS PULSE OX SET UP.
[2024-07-09 19:07] VITALS: BP 116/74
[2024-07-10] MEDS ORDERED: Ipratropium/Albuterol SulF 2.5-0.5MG/3 ML Amp INH SCH (01:00)
[2024-07-10 02:17] VITALS: BP 123/78
[2024-07-10 05:05] LABS: BASOPHILS ABSOLUTE AUTO 0.01 K/mm3 (0.00-0.23); BASOPHILS PERCENT AUTO 0 % (0-2); EOSINOPHILS PERCENT AUTO 0 % (0-6); Hematocrit 33.9 % (37.0-53.0); Hemoglobin 10.5 g/dL (13.5-17.5); IMMATURE GRAN ABSOLUTE AUTO 0.04 K/mm3 (0.00-0.10); IMMATURE GRAN PERCENT AUTO 1 % (0-1); LYMPHOCYTES ABSOLUTE AUTO 0.47 K/mm3 (0.84-5.20); LYMPHOCYTES PERCENT AUTO 10 % (21-46); MONOCYTES ABSOLUTE AUTO 0.23 K/mm3 (0.16-1.47); MONOCYTES PERCENT AUTO 5 % (4-13); Mean Corpuscular HGB 29.2 pg (26.0-34.0); Mean Corpuscular Volume 94 fL (80-100); Mean Platelet Volume 10.1 fL (9.1-12.4); NEUTROPHILS ABSOLUTE AUTO 4.11 K/mm3 (1.96-9.15); NEUTROPHILS PERCENT AUTO 85 % (41-73); Platelet Count 214 K/mm3 (150-400); RDW Coefficient Variation 13.9 % (11.7-14.2); RDW Standard Deviation 48.1 fL (35.1-46.3); White Blood Cell Count 4.86 K/mm3 (4.00-11.30)
[2024-07-10 05:37] LABS: Bun/Creatinine Ratio 39.5 (12.0-20.0); Calcium, Blood 8.4 mg/dL (8.5-10.1); Creatinine, Blood 0.58 mg/dL (0.60-1.20); Potassium, Blood 4.1 mmol/L (3.5-5.5)
[2024-07-10 07:22] VITALS: BP 115/79
[2024-07-10] MEDS ORDERED: Fluconazole 100 MG Tab PO SCH (09:00)
[2024-07-10] MEDS ORDERED: PredniSONE 20 MG Tab PO SCH (09:00)
[2024-07-10] MEDS ORDERED: Acetaminophen325 M1 PO (13:49)
[2024-07-10] MEDS ORDERED: FLUC100 PO (13:52)
[2024-07-10] MEDS ORDERED: BETASEPT118 M1 PO (13:52)
[2024-07-10] MEDS ORDERED: GUAI600T33 PO (13:53)
[2024-07-10] MEDS ORDERED: MIRALAX17 GM PO (13:54)
[2024-07-10] MEDS ORDERED: Prednisone10 MG PO (13:57)
[2024-07-10] MEDS ORDERED: VISBIOME 112.51 EACH PO (13:58)
[2024-07-10] MEDS ORDERED: AMOX875 PO (13:59)
--- NOTE | 2024-07-10 15:14 | NUR ---
PT WAS DISCHARGED HOME W/HOMEHEALTH. PT AND HAD NO QUESTIONS OR CONCERNS WITH D/C INSTRUCTIONS.
== END 2024-07-10 15:12 | disposition home health service (06) | DRG 193 ==
LOC: ER 12:03 → PCU 17:58 → ERHOLD 17:58 → ICUE 20:24 → PCU 22:44 → MEDS 07-09 15:48
PROVIDERS: Internal Medicine; Nurse Practitioner Acute Care; Physician Assistant; Student in an Organized Health Care Education/Training Program; ADMIT Internal Medicine
PROC: 5A09357 Assistance with Respiratory Ventilation, Less than 24 Consecutive Hours, Continuous Positive Airway Pressure (ICD-10-PCS; principal; 2024-07-05)
DX: J18.9 Pneumonia, unspecified organism (principal); J96.02 Acute respiratory failure with hypercapnia; J96.11 Chronic respiratory failure with hypoxia; J44.0 Chronic obstructive pulmonary disease with (acute) lower respiratory infection; J44.1 Chronic obstructive pulmonary disease with (acute) exacerbation; E87.0 Hyperosmolality and hypernatremia; F41.9 Anxiety disorder, unspecified; I11.0 Hypertensive heart disease with heart failure; I50.9 Heart failure, unspecified; Z99.81 Dependence on supplemental oxygen; Z79.82 Long term (current) use of aspirin; Z79.899 Other long term (current) drug therapy; Z79.51 Long term (current) use of inhaled steroids; Z79.891 Long term (current) use of opiate analgesic; Z98.890 Other specified postprocedural states; Z87.891 Personal history of nicotine dependence
CPT/HCPCS: 36415; 71046; 80048; 80053; 82803; 83605; 83735; 83880; 84484; 85025; 87040; 87070; 87205; 93005; 93010; 94640; 94644; 94660; 94664; 94762; 96374; 96375; 99285-25; A9270; J0456; J0696; J1650; J2060; J2405; J2919; J7030; J7050; J7512

== ENCOUNTER 2024-09-21 10:06 | Inpatient (IN) | payer OTHER ==
[~2024-09-21] VITALS: Ht 175.3 cm; Wt 45.9 kg
[~2024-09-21 10:06] MED LIST changes: +AMOX875 PO; +Acetaminophen325 M1 PO; +BETASEPT118 M1 PO; +FLUC100 PO; +MIRALAX17 GM PO; +MONT10T PO
[2024-09-21 10:44] LABS: BASOPHILS ABSOLUTE AUTO 0.04 K/mm3 (0.00-0.23); BASOPHILS PERCENT AUTO 0 % (0-2); EOSINOPHILS PERCENT AUTO 0 % (0-6); Hematocrit 41.1 % (37.0-53.0); Hemoglobin 13.3 g/dL (13.5-17.5); IMMATURE GRAN ABSOLUTE AUTO 0.06 K/mm3 (0.00-0.10); IMMATURE GRAN PERCENT AUTO 0 % (0-1); LYMPHOCYTES ABSOLUTE AUTO 0.88 K/mm3 (0.84-5.20); LYMPHOCYTES PERCENT AUTO 6 % (21-46); MONOCYTES ABSOLUTE AUTO 0.76 K/mm3 (0.16-1.47); MONOCYTES PERCENT AUTO 5 % (4-13); Mean Corpuscular HGB 29.9 pg (26.0-34.0); Mean Corpuscular HGB Conc 32.4 g/dL (31.5-36.5); Mean Corpuscular Volume 92 fL (80-100); Mean Platelet Volume 9.1 fL (9.1-12.4); NEUTROPHILS ABSOLUTE AUTO 13.21 K/mm3 (1.96-9.15); NEUTROPHILS PERCENT AUTO 88 % (41-73); Platelet Count 301 K/mm3 (150-400); RDW Coefficient Variation 14.3 % (11.7-14.2); RDW Standard Deviation 48.9 fL (35.1-46.3); Red Blood Cell Count 4.45 M/mm3 (4.30-5.90); White Blood Cell Count 14.95 K/mm3 (4.00-11.30)
[2024-09-21] MEDS ORDERED: Albuterol 2.5 MG/3 ML VIAL INH SCH (10:45)
[2024-09-21] MEDS ORDERED: Ipratropium/Albuterol SulF 2.5-0.5MG/3 ML Amp INH ONE (10:45)
[2024-09-21] MEDS ORDERED: MethylPREDNISolone Sod Succ 125 MG Vial IV ONE (10:45)
[2024-09-21] MEDS ORDERED: Doxycycline Hyclate 100 MG TAB PO ONE (10:50)
[2024-09-21] MEDS ORDERED: CefTRIAXone Sodium 1,000 MG in NS 50 ML IV ONE (11:00)
[2024-09-21 11:10] LABS: Albumin, Blood 3.3 g/dL (3.4-5.0); Albumin/Globulin Ratio 0.7 (0.8-1.8); Bilirubin, Total 0.7 mg/dL (0.1-1.0); Bun/Creatinine Ratio 28.5 (12.0-20.0); Calcium, Blood 8.7 mg/dL (8.5-10.1); Creatinine, Blood 0.74 mg/dL (0.60-1.20); Globulin, Blood 4.5 g/dL (2.2-4.0); Potassium, Blood 4.7 mmol/L (3.5-5.5); Total Protein, Blood 7.8 g/dL (6.4-8.2)
[2024-09-21] MEDS ORDERED: HYDROCODONE-AC1 EA19 PO (11:38)
[2024-09-21] MEDS ORDERED: TERB250 PO (11:38)
[2024-09-21] MEDS ORDERED: TRELEGY ELLIPT1 EACH IH (11:39)
[2024-09-21] MEDS ORDERED: TRELEGY ELLIPT1 EAC1 INH (11:40)
[2024-09-21 12:25] LABS: Influenza A, PCR NEGATIVE (NEGATIVE); Influenza B, PCR NEGATIVE (NEGATIVE); Resp Syncytial Virus, PCR NEGATIVE (NEGATIVE); SARS-Cov-2 (COVID-19) PCR, MMC NEGATIVE (NEGATIVE)
[2024-09-21] MEDS ORDERED: Budesonide 0.25 MG / 2 ML RESP INH SCH (12:25)
[2024-09-21] MEDS ORDERED: FLU VACC TS2024-25(6MOS UP)/PF 45 MCG/0.5 ML SYRINGE IM SCH (12:30)
[2024-09-21] MEDS ORDERED: HYDROcodone 5-APAP 325 TAB PO PRN (12:30)
[2024-09-21] MEDS ORDERED: Ipratropium/Albuterol SulF 2.5-0.5MG/3 ML Amp INH SCH (12:30)
[2024-09-21] MEDS ORDERED: Albuterol 2.5 MG/3 ML VIAL INH PRN (12:30)
[2024-09-21] MEDS ORDERED: Azithromycin 500 MG in NS 250 ML IV SCH (13:00)
[2024-09-21 15:42] VITALS: BP 131/78
[2024-09-21] MEDS ORDERED: TERBINAFINE15 GM TOP (15:45)
[2024-09-21 16:07] LABS: Adenovirus Not Detected (NOT DETECT); Bordetella pertussis Not Detected (NOT DETECT); Chlamydophila pneumoniae Not Detected (NOT DETECT); Coronavirus 229E Not Detected (NOT DETECT); Coronavirus HKU1 Not Detected (NOT DETECT); Coronavirus NL63 Not Detected (NOT DETECT); Coronavirus OC43 Detected (NOT DETECT); Human Metapneumovirus Not Detected (NOT DETECT); Human Rhinovirus/Enterovirus Not Detected (NOT DETECT); Influenza A/2009-H1 Not Detected (NOT DETECT); Influenza A/H1 Not Detected (NOT DETECT); Influenza A/H3 Not Detected (NOT DETECT); Influenza B Not Detected (NOT DETECT); Mycoplasma pneumoniae Not Detected (NOT DETECT); Parainfluenza Virus 1 Not Detected (NOT DETECT); Parainfluenza Virus 2 Not Detected (NOT DETECT); Parainfluenza Virus 3 Not Detected (NOT DETECT); Parainfluenza Virus 4 Not Detected (NOT DETECT); Respiratory Syncytial Virus Not Detected (NOT DETECT); SARS-Cov-2 (COVID-19), BioFire Not Detected (NOT DETECT)
--- NOTE | 2024-09-21 16:23 | NUR ---
PATIENT ARRIVAL TO ROOM @1530, ORIENTED TO CALL LIGHT, LUNG SOUNDS ARE DIMINSHED AND COURSE, CONGESTED COUGH, TIGHT T/O. ON 4L NC, SATS 95-98%. RR 20-25. DYSPNEA W/ EXCERTION. MEDICATED FOR PAIN AND RESTING AT THIS TIME.
[2024-09-21] MEDS ORDERED: NS 1,000 ML IV SCH (17:55)
[2024-09-21] MEDS ORDERED: Benzonatate 100 MG Cap PO PRN (17:55)
[2024-09-21 20:06] VITALS: BP 115/73
[2024-09-21] MEDS ORDERED: Saline Nasal Spray 45 ML PRN (20:30)
[2024-09-21] MEDS ORDERED: Insulin Human Lispro 100 Units/ML 3ML Syringe SC SCH (21:00)
[2024-09-21] MEDS ORDERED: GuaiFENesin 600 MG TabCR PO SCH (21:00)
[2024-09-22] MEDS ORDERED: MethylPREDNISolone Sod Succ 125 MG Vial IV SCH
[2024-09-22 05:08] VITALS: BP 141/82
--- NOTE | 2024-09-22 05:20 | NUR ---
SHIFT SUMMARY NOC PT A/O X 4. PLEASANT AND COOPERATIVE WITH CARE. VSS. HS CBG 193 CNI. PT ON 4L/NC SPO2 >92%. PT RECEIVED IV STEROIDDS PER EMAR. PT IN DROPLET ISOLATION FOR CORONAVIRUS 0C43.PT STARTED ON FLUTTER VALVE TO HELP LOOSEN AND EXPEL SECRETIONS. HOME NASAL SPRAY ALSO RESTARTED. PT CURRENTLY RESTING WITH BED IN LOWEST POSITION, AND CALL LIGHT WITHIN REACH.
[2024-09-22] MEDS ORDERED: Omeprazole 20 MG CapCR PO SCH (06:00)
[2024-09-22 06:12] LABS: Hematocrit 38.7 % (37.0-53.0); Hemoglobin 12.3 g/dL (13.5-17.5); Mean Corpuscular HGB 29.7 pg (26.0-34.0); Mean Corpuscular HGB Conc 31.8 g/dL (31.5-36.5); Mean Corpuscular Volume 94 fL (80-100); Mean Platelet Volume 9.6 fL (9.1-12.4); Platelet Count 244 K/mm3 (150-400); RDW Coefficient Variation 14.2 % (11.7-14.2); RDW Standard Deviation 48.9 fL (35.1-46.3); Red Blood Cell Count 4.14 M/mm3 (4.30-5.90); White Blood Cell Count 13.39 K/mm3 (4.00-11.30)
[2024-09-22 06:43] LABS: Albumin, Blood 2.8 g/dL (3.4-5.0); Albumin/Globulin Ratio 0.6 (0.8-1.8); Bilirubin, Total 0.4 mg/dL (0.1-1.0); Bun/Creatinine Ratio 33.4 (12.0-20.0); Calcium, Blood 8.9 mg/dL (8.5-10.1); Creatinine, Blood 0.75 mg/dL (0.60-1.20); Globulin, Blood 4.5 g/dL (2.2-4.0); Potassium, Blood 5.2 mmol/L (3.5-5.5); Total Protein, Blood 7.3 g/dL (6.4-8.2)
[2024-09-22 07:03] LABS: BAND PERCENT MAN 22 % (0-8); BASOPHILS PERCENT MAN 0 % (0-2); EOSINOPHILS PERCENT MAN 0 % (0-6); LYMPHOCYTES ABSOLUTE MAN 0.66 K/mm3 (0.84-5.20); LYMPHOCYTES PERCENT MAN 5 % (21-46); MONOCYTES ABSOLUTE MAN 0.53 K/mm3 (0.16-1.47); MONOCYTES PERCENT MAN 4 % (4-13); NEUTROPHILS ABSOLUTE MAN 12.18 K/mm3 (1.96-9.15); SEG NEUTROPHILS PERCENT MAN 69 % (41-73); TOTAL CELLS COUNTED 100
[2024-09-22 07:35] VITALS: BP 115/77
[2024-09-22 08:19] VITALS: BP 114/80
[2024-09-22] MEDS ORDERED: Aspirin 81 MG Chew PO SCH (09:00)
[2024-09-22] MEDS ORDERED: Terbinafine 250 MG Tab PO SCH (09:00)
[2024-09-22] MEDS ORDERED: Enoxaparin 40 MG/0.4 ML SYR SC SCH (09:00)
[2024-09-22] MEDS ORDERED: CefTRIAXone Sodium 1,000 MG in NS 100 ML IV SCH (09:00)
[2024-09-22] MEDS ORDERED: Metoprolol Succinate 50 MG TABCR PO SCH (09:00)
[2024-09-22] MEDS ORDERED: NS 1,000 ML IV SCH (12:50)
[2024-09-22 15:36] VITALS: BP 121/81
--- NOTE | 2024-09-22 16:21 | NUR ---
SHIFT SUMMARY PT IS A/OX4, RESPONSIVE, FOLLOWING COMMANDS. PT HAS RESTED MOST OF SHIFT. SBA TO AMBULATE PER NOC NURSE BUT PT HAS RESTED IN BED THIS SHIFT, USING URINAL TO VOID INDEPENDENTLY. SPUTUM SAMPLE SENT. PT IS AT HIS BASELINE 3LNC W/ O2 SATS >94%, CONT BIOX ON. BREATHING TX PER EMAR W/ RT. TOLERATING REG DIET AND SMALL AMNT OF FLUIDS. ABX PER EMAR. CALL LIGHT IN REACH.
[2024-09-22 21:04] VITALS: BP 130/84
[2024-09-23 02:36] VITALS: BP 100/61
--- NOTE | 2024-09-23 06:22 | NUR ---
SHIFT SUMMARY AOX4. VSS. SPO2 >92% ON 3L 02 WHICH IS BASELINE. BS DIM W/RLL CRACKLES. HAS OCC MOIST PRODUCTIVE COUGH, STATES SPUTUM IS WHITE. LAB STATES WE NEED NEW SPUTUM SAMPLE. PT STATES HIS BREATHING IS BETTER THEN WHEN HE CAME TO HOSPITAL. REPORTED PAIN IN HIP & REQUESTED NORCO 1x. IND W/URINAL. CALL LIGHT IN REACH.
[2024-09-23 07:16] VITALS: BP 118/86
[2024-09-23] MEDS ORDERED: CefTRIAXone 1000 MG Vial ONE (09:51)
[2024-09-23 10:42] LABS: Base Excess Venous 8.3 mmol/L; PCO2 Venous 49.2 mmHg (38-42); pH Blood Venous 7.43 (7.34-7.37)
[2024-09-23 15:06] VITALS: BP 112/79
--- NOTE | 2024-09-23 15:53 | NUR ---
SHIFT SUMMARY PT IS ALERT, RESPONSIVE, FOLLOWING COMMANDS. PT CONTINUES TO HAVE LOOSE, MOIST, PRODUCTIVE COUGH W/ WHITE/YELLOW SPUTUM PRODUCTION. ON 3LNC, O2 SATS >92%, PT WEARS 3L AT BASELINE. IV FLUIDS AND ABX GIVEN ORDERED. PT DENIES PAIN TODAY. VSS. BREATHING TX W/ RT. EATING, VOIDING, AMBULATING SBA. CALL LIGHT IN REACH.
--- NOTE | 2024-09-23 18:35 | NUR ---
CONSULTED W/ DR. MOLINA REGARDING BNP AND VBG RESULTS. PT SAYS INFECTION IS IMPROVING, NO NEW ORDERS RECIEVED. PT CURRENTLY RESTING IN BED EATING DINNER, CALL LIGHT IN REACH.
[2024-09-23 19:22] VITALS: BP 146/92
[2024-09-24 03:22] VITALS: BP 116/70
--- NOTE | 2024-09-24 04:52 | NUR ---
SHIFT SUMMARY VSS. PT SLEPT ON AND OFF T/O THE NIGHT. MAINTAINED SPO2 OF >90% ON 3L VIA NC. PT WAS STRUGGLING WITH COUGHING AT THE BEGINNING OF THE SHIFT, MEDICATED WITH TESSALON MARIUM. PT REPORTS OUTSTANDING RESULTS. SECRETIONS NOTED TO BE COPIOUS, THICK, AND WHITE. OVERALL, PT ENDORSES FEELING BETTER THIS AM. TOLLERATING PO INTAKE W/O N/V, VOIDING W/O DIFFICULTY. NO ACUTE EVENTS T/O THE NIGHT, PLAN TO CONTINUE IV ABX PER EMAR AND AWAIT FURTHER ORDERS.
[2024-09-24 05:19] LABS: Hematocrit 30.2 % (37.0-53.0); Hemoglobin 9.5 g/dL (13.5-17.5); Mean Corpuscular HGB 29.6 pg (26.0-34.0); Mean Corpuscular HGB Conc 31.5 g/dL (31.5-36.5); Mean Corpuscular Volume 94 fL (80-100); Mean Platelet Volume 9.5 fL (9.1-12.4); Platelet Count 259 K/mm3 (150-400); RDW Coefficient Variation 14.1 % (11.7-14.2); RDW Standard Deviation 48.9 fL (35.1-46.3); Red Blood Cell Count 3.21 M/mm3 (4.30-5.90); White Blood Cell Count 8.75 K/mm3 (4.00-11.30)
[2024-09-24 05:56] LABS: Albumin, Blood 2.4 g/dL (3.4-5.0); Albumin/Globulin Ratio 0.7 (0.8-1.8); Bilirubin, Total 0.2 mg/dL (0.1-1.0); Bun/Creatinine Ratio 35.9 (12.0-20.0); Calcium, Blood 8.2 mg/dL (8.5-10.1); Creatinine, Blood 0.64 mg/dL (0.60-1.20); Globulin, Blood 3.3 g/dL (2.2-4.0); Potassium, Blood 4.1 mmol/L (3.5-5.5); Total Protein, Blood 5.7 g/dL (6.4-8.2)
[2024-09-24 06:17] LABS: BAND PERCENT MAN 8 % (0-8); BASOPHILS PERCENT MAN 0 % (0-2); EOSINOPHILS PERCENT MAN 0 % (0-6); LYMPHOCYTES ABSOLUTE MAN 0.61 K/mm3 (0.84-5.20); LYMPHOCYTES PERCENT MAN 7 % (21-46); MONOCYTES PERCENT MAN 0 % (4-13); MYELOCYTE ABSOLUTE MAN 0.08 K/mm3 (0.00-0.00); MYELOCYTE PERCENT MAN 1 % (0-0); NEUTROPHILS ABSOLUTE MAN 8.05 K/mm3 (1.96-9.15); SEG NEUTROPHILS PERCENT MAN 84 % (41-73); TOTAL CELLS COUNTED 100
[2024-09-24 07:33] VITALS: BP 120/67
[2024-09-24 14:35] VITALS: BP 106/90
--- NOTE | 2024-09-24 17:26 | NUR ---
SHIFT SUMMARY/TRANSFER TO MED UNIT HAS DONE WELL TODAY. ABLE TO GET TO 3L NC IS HIS BASELINE. WORKED w/ THERAPY. CONTs TO HAVE HARSH COURSE COUGH. USING URINAL WELL. TRANSFERRED TO MEDICAL UNIT.
--- NOTE | 2024-09-24 17:55 | NUR ---
TRANSFER/SHIFT SUMMARY PT AOX4, SBA TO THE BR. TRANSFER THIS SHIFT FROM SURGICAL FLOOR, REPORT RECEIVED FROM ARBEN CERNA. PT ORIENTED TO THE ROOM. NO COMPLAINTS UPON ARRIVAL, NO NEEDS AT THIS TIME. FAMILY AT THE BS. REPOSITIONS SELF IN BED. CALL LIGHT WITHIN REACH, BED LOCKED AND IN THE LOWEST POSITION. WILL REPORT TO ONCOMING NURSE.
[2024-09-24 20:15] VITALS: BP 133/73
[2024-09-25] MEDS ORDERED: Lidocaine 2% Viscous Soln 20 ML,Nystatin 100,000 Unit/ml Susp 20 ML,Mag Hydrox/Al Hydro... MT PRN (00:35)
[2024-09-25 05:46] VITALS: BP 119/82
[2024-09-25 06:29] LABS: BASOPHILS ABSOLUTE AUTO 0.01 K/mm3 (0.00-0.23); BASOPHILS PERCENT AUTO 0 % (0-2); EOSINOPHILS PERCENT AUTO 0 % (0-6); Hematocrit 32.6 % (37.0-53.0); Hemoglobin 10.3 g/dL (13.5-17.5); IMMATURE GRAN ABSOLUTE AUTO 0.05 K/mm3 (0.00-0.10); IMMATURE GRAN PERCENT AUTO 1 % (0-1); LYMPHOCYTES ABSOLUTE AUTO 0.61 K/mm3 (0.84-5.20); LYMPHOCYTES PERCENT AUTO 10 % (21-46); MONOCYTES ABSOLUTE AUTO 0.27 K/mm3 (0.16-1.47); MONOCYTES PERCENT AUTO 4 % (4-13); Mean Corpuscular HGB 29.7 pg (26.0-34.0); Mean Corpuscular HGB Conc 31.6 g/dL (31.5-36.5); Mean Corpuscular Volume 94 fL (80-100); Mean Platelet Volume 9.4 fL (9.1-12.4); NEUTROPHILS ABSOLUTE AUTO 5.25 K/mm3 (1.96-9.15); NEUTROPHILS PERCENT AUTO 85 % (41-73); Platelet Count 260 K/mm3 (150-400); RDW Coefficient Variation 13.9 % (11.7-14.2); RDW Standard Deviation 48.2 fL (35.1-46.3); Red Blood Cell Count 3.47 M/mm3 (4.30-5.90); White Blood Cell Count 6.19 K/mm3 (4.00-11.30)
[2024-09-25 06:50] LABS: Albumin, Blood 2.6 g/dL (3.4-5.0); Albumin/Globulin Ratio 0.8 (0.8-1.8); Bilirubin, Total 0.5 mg/dL (0.1-1.0); Bun/Creatinine Ratio 37.2 (12.0-20.0); Calcium, Blood 8.3 mg/dL (8.5-10.1); Creatinine, Blood 0.59 mg/dL (0.60-1.20); Globulin, Blood 3.4 g/dL (2.2-4.0); Potassium, Blood 4.1 mmol/L (3.5-5.5)
[2024-09-25 07:13] VITALS: BP 101/63
[2024-09-25] MEDS ORDERED: NS 250 ML IV PRN (10:00)
[2024-09-25] MEDS ORDERED: TRELEGY ELLIPTA INH SCH (12:25)
[2024-09-25 17:27] VITALS: BP 131/81
--- NOTE | 2024-09-25 17:42 | NUR ---
SHIFT SUMMARY PT AOX4, MAKES HIS NEEDS KNOWN. SBA TO THE BR, USES THE URINAL. FAMILY AT THE BS THIS SHIFT. MEDICATED FOR PAIN PER THE EMAR. C/O CONGESTION TO R SIDE OF THE FACE RELAYED TO THE DOCTOR, NEW MEDS PER THE EMAR. PT REPOSITIONS SELF IN BED. CALL LIGHT WITHIN REACH, BED LOCKED AND IN THE LOWEST POSITION. WILL REPORT TO ONCOMING NURSE.
[2024-09-25 19:55] VITALS: BP 129/80
[2024-09-25] MEDS ORDERED: Lactobacil 2-S.Thermo-Bifido 1 1 Cap PO SCH (21:00)
[2024-09-25] MEDS ORDERED: MethylPREDNISolone Sod Succ 125 MG Vial IV SCH (21:00)
[2024-09-25] MEDS ORDERED: GuaiFENesin 600 MG TabCR PO SCH (21:00)
[2024-09-26 05:00] LABS: BASOPHILS ABSOLUTE AUTO 0.01 K/mm3 (0.00-0.23); BASOPHILS PERCENT AUTO 0 % (0-2); EOSINOPHILS PERCENT AUTO 0 % (0-6); Hematocrit 31.7 % (37.0-53.0); Hemoglobin 9.9 g/dL (13.5-17.5); IMMATURE GRAN ABSOLUTE AUTO 0.07 K/mm3 (0.00-0.10); IMMATURE GRAN PERCENT AUTO 1 % (0-1); LYMPHOCYTES ABSOLUTE AUTO 0.58 K/mm3 (0.84-5.20); LYMPHOCYTES PERCENT AUTO 11 % (21-46); MONOCYTES ABSOLUTE AUTO 0.49 K/mm3 (0.16-1.47); MONOCYTES PERCENT AUTO 9 % (4-13); Mean Corpuscular HGB 29.1 pg (26.0-34.0); Mean Corpuscular HGB Conc 31.2 g/dL (31.5-36.5); Mean Corpuscular Volume 93 fL (80-100); Mean Platelet Volume 9.5 fL (9.1-12.4); NEUTROPHILS ABSOLUTE AUTO 4.37 K/mm3 (1.96-9.15); NEUTROPHILS PERCENT AUTO 79 % (41-73); Platelet Count 244 K/mm3 (150-400); RDW Coefficient Variation 13.9 % (11.7-14.2); RDW Standard Deviation 47.2 fL (35.1-46.3); White Blood Cell Count 5.52 K/mm3 (4.00-11.30)
[2024-09-26 05:21] LABS: Albumin, Blood 2.5 g/dL (3.4-5.0); Albumin/Globulin Ratio 0.8 (0.8-1.8); Bilirubin, Total 0.2 mg/dL (0.1-1.0); Bun/Creatinine Ratio 47.1 (12.0-20.0); Creatinine, Blood 0.51 mg/dL (0.60-1.20); Globulin, Blood 3.2 g/dL (2.2-4.0); Potassium, Blood 4.1 mmol/L (3.5-5.5); Total Protein, Blood 5.7 g/dL (6.4-8.2)
[2024-09-26 05:27] VITALS: BP 121/78
[2024-09-26 07:49] VITALS: BP 129/82
[2024-09-26] MEDS ORDERED: BENZ100A PO (15:21)
[2024-09-26 16:54] VITALS: BP 130/81
--- NOTE | 2024-09-26 18:20 | NUR ---
SHIFT SUMMARY- PT ALERT AND ORIENTED, 1P SBA TO THE BATHROOM. PT HAD A HOME O2 EVAL TODAY. DISCHARGE ORDER WAS IN FOR TODAY, AFTER SPEAKING TO THE PT THE DR DECIDED TO HOLD OFF ON DISCHARGE TODAY. PLAN IS FOR THE PT TO DC HOME EARLY TOMORROW MORNING. PT AND FAMILY ARE AWARE. DISCHARGE COMPLETED AND MEDS FAXED TO THE PHARMACY. PT IN BED, CALL LIGHT IN REACH NO S&S OF DISTRESS NOTED.
[2024-09-26 19:49] VITALS: BP 120/78
[2024-09-27 04:33] VITALS: BP 143/78
--- NOTE | 2024-09-27 06:44 | NUR ---
SHIFT SUMMARY: Pt is admitted for acute on chronic hypoxic respiratory failure and is a full code. Is alert and able to make needs known. ADLs have been SBA. denies pain or discomfort when asked. On 3lpm o2 via NC.
[2024-09-27 07:07] VITALS: BP 142/85
[2024-09-27] MEDS ORDERED: NYSTATIN100000 U10 PO (07:59)
--- NOTE | 2024-09-27 12:02 | NUR ---
DISCHARGE NOTE- PT WAS GIVEN VERBAL AND WRITTEN DISCHARGE INSTRUCTIONS AND ACKNOWLEDGED UNDERSTANDING OF THEM. PT SPOUSE PRESENT FOR DISCHARGE TEACHING. PT HAD HIS HOME O2 WITH HIM AT THE TIME OF DISCHARGE. IV DC'D PRIOR TO DC. PT ESCORTED OUT VIA WC BY THE [employer] CLERK. NO S&S OF DISTRESS NOTED AT THE TIME OF DISCHARGE. PT LEFT AT 0800 AFTER AM MEDS HE DECLINED FULL ASSESSMENT.
== END 2024-09-27 08:13 | disposition home or self-care (01) | DRG 871 ==
LOC: ER 10:06 → ERHOLD 12:23 → SURS 12:23 → MEDS 12:23 → SURS 15:35 → MEDS 09-24 17:05 → ENPENDDIS 09-26 16:33 → MEDS 09-27 08:13
PROVIDERS: Family Medicine; Student in an Organized Health Care Education/Training Program; ADMIT Internal Medicine
DX: A41.9 Sepsis, unspecified organism (principal); J18.9 Pneumonia, unspecified organism; J96.21 Acute and chronic respiratory failure with hypoxia; J44.1 Chronic obstructive pulmonary disease with (acute) exacerbation; J44.0 Chronic obstructive pulmonary disease with (acute) lower respiratory infection; R64 Cachexia; R65.20 Severe sepsis without septic shock; T38.0X5A Adverse effect of glucocorticoids and synthetic analogues, initial encounter; I10 Essential (primary) hypertension; R73.9 Hyperglycemia, unspecified; B97.29 Other coronavirus as the cause of diseases classified elsewhere; K21.9 Gastro-esophageal reflux disease without esophagitis; F41.9 Anxiety disorder, unspecified; Z79.899 Other long term (current) drug therapy; Z79.82 Long term (current) use of aspirin; Z87.891 Personal history of nicotine dependence; Z99.81 Dependence on supplemental oxygen; Z68.24 Body mass index [BMI] 24.0-24.9, adult
CPT/HCPCS: 0202U; 0241U; 36415; 71045; 80053; 82803; 82947; 83036; 83605; 83880; 84145; 85025; 87040; 87070; 87205; 93005; 93010; 94640; 94644; 94664; 94760; 94761; 94762; 96365; 96375; 97161; 99285-25; A9270; J0456; J0696; J1650; J2919; J7030; J7050

== ENCOUNTER 2025-01-27 19:11 | Emergency (ER) | payer OTHER ==
[~2025-01-27] VITALS: Ht 167.6 cm; Wt 46.7 kg
[~2025-01-27 19:11] MED LIST changes: +BENZ100A PO; +HYDROCODONE-AC1 EA19 PO; +NYSTATIN100000 U10 PO; +TERBINAFINE15 GM TOP; +TRELEGY ELLIPT1 EACH IH
[2025-01-27 19:58] LABS: BASOPHILS ABSOLUTE AUTO 0.04 K/mm3 (0.00-0.23); BASOPHILS PERCENT AUTO 0 % (0-2); EOSINOPHILS ABSOLUTE AUTO 0.38 K/mm3 (0.00-0.68); EOSINOPHILS PERCENT AUTO 4 % (0-6); Hematocrit 34.4 % (37.0-53.0); Hemoglobin 10.7 g/dL (13.5-17.5); IMMATURE GRAN ABSOLUTE AUTO 0.03 K/mm3 (0.00-0.10); IMMATURE GRAN PERCENT AUTO 0 % (0-1); LYMPHOCYTES ABSOLUTE AUTO 1.28 K/mm3 (0.84-5.20); LYMPHOCYTES PERCENT AUTO 13 % (21-46); MONOCYTES ABSOLUTE AUTO 0.80 K/mm3 (0.16-1.47); MONOCYTES PERCENT AUTO 8 % (4-13); Mean Corpuscular HGB Conc 31.1 g/dL (31.5-36.5); Mean Corpuscular Volume 91 fL (80-100); NEUTROPHILS ABSOLUTE AUTO 7.10 K/mm3 (1.96-9.15); NEUTROPHILS PERCENT AUTO 74 % (41-73); NRBC ABSOLUTE 0.00 K/mm3 (0.00-0.02); NRBC Auto 0.0 /100 WBC (0.0-0.2); Platelet Count 326 K/mm3 (150-400); RDW Coefficient Variation 14.0 % (11.7-14.2); RDW Standard Deviation 46.6 fL (35.1-46.3)
[2025-01-27 20:17] LABS: Alanine Aminotransfer (ALT/SGP 17.0 U/L (12-78); Albumin, Blood 3.2 g/dL (3.4-5.0); Albumin/Globulin Ratio 0.7 (0.8-1.8); Anion Gap 5.0 mmol/L (3-11); Aspartate Aminotrans (AST/SGOT 22.0 U/L (12-37); Bilirubin, Total 0.3 mg/dL (0.1-1.0); Blood Urea Nitrogen 15.0 mg/dL (8-24); CO2, Blood 32.0 mmol/L (21-32); Calcium, Blood 8.5 mg/dL (8.5-10.1); Chloride, Blood 106.0 mmol/L (98-108); Creatinine, Blood 0.77 mg/dL (0.60-1.20); Globulin, Blood 4.5 g/dL (2.2-4.0); Glucose, Blood 115.0 mg/dL (70-99); Potassium, Blood 4.0 mmol/L (3.5-5.5); Sodium, Blood 139.0 mmol/L (136-145); Total Protein, Blood 7.7 g/dL (6.4-8.2)
[2025-01-28] MEDS ORDERED: LEVO750 PO (01:57)
[2025-01-28 02:40] VITALS: BP 122/73
== END 2025-01-28 03:18 | disposition home or self-care (01) ==
LOC: ER 19:11
PROVIDERS: Student in an Organized Health Care Education/Training Program
DX: J18.9 Pneumonia, unspecified organism (principal); J44.0 Chronic obstructive pulmonary disease with (acute) lower respiratory infection; D64.9 Anemia, unspecified; D72.0 Genetic anomalies of leukocytes; I11.0 Hypertensive heart disease with heart failure; I50.9 Heart failure, unspecified; K21.9 Gastro-esophageal reflux disease without esophagitis; Z99.81 Dependence on supplemental oxygen; Z87.891 Personal history of nicotine dependence; Z79.82 Long term (current) use of aspirin; Z79.51 Long term (current) use of inhaled steroids; Z79.52 Long term (current) use of systemic steroids; Z79.899 Other long term (current) drug therapy; Z59.89 Other problems related to housing and economic circumstances
CPT/HCPCS: 71046; 71260; 80053; 83690; 83880; 84484; 85025; 85379; 93005; 93010; 99285-25; A9270; Q9967